=== PATIENT | female | born 1970 | race African-American/Black ===

== ENCOUNTER 2016-08-05 18:15 | Inpatient (IN) | payer OTHER ==
[2016-08-05 18:32] VITALS: BMI 21.1
--- NOTE | 2016-08-05 18:56 | HP ---
COWS - Scale Resting Pulse: 1= [place] 81-100 Sweatin= Chills/Flushing Restless Observation: 3= Extraneous Movement Pupil Size: 0= Normal to Room Light Bone or Joint Aches: 2= Severe Diffuse Aches Runny Nose/ Eye Tearin= Runny Nose/Eyes GI Upset > 30mins: 1= Stomach Cramp Tremor Observation: 2= Slight Tremor Visible Yawning Observation: 0= None Anxiety or Irritability: 2=Irritable/Anxious Goose Flesh Skin: 0=Smooth Skin COWS Score: 14 CIWA Score - CIWA Score Nausea/Vomitin-Mild Nausea/No Vomiting Muscle Tremors: 4-Moderate,w/Arms Extend Anxiety: 4-Mod. Anxious/Guarded Agitation: 4-Moderately Restless Paroxysmal Sweats: 1-Minimal Palms Moist Orientation: 0-Oriented Tacttile Disturbances: 0-None Auditory Disturbances: 0-None Visual Disturbances: 0-None Headache: 0-None Present CIWA-Ar Total Score: 14 Admission ROS S - HPI Chief Complaint: WITHDRAWAL SX Allergies/Adverse Reactions: Allergies Allergy/AdvReac Type Severity Reaction Status Date / Time No Known Allergies Allergy Verified 08/05/16 18:41 History of Present Illness: 45 YEARS OLD FEMALE WITH LONG HISTORY OF ALCOHOL OPIUM NICOTINE DEPENDENCE HAS POSITIVE PPD AND NASAL CONGESTION BIPOLAR II IS ADMITTED TO DETOX Exam Limitations: No Limitations - Ebola screening Have you traveled outside of the country in the last 21 days: No Have you had contact with anyone from an Ebola affected area: No Have you been sick,other than usual withdrawal symptoms: No Do you have a fever: No - Review of Systems Constitutional: Chills, Loss of Appetite, Changes in sleep, Unintentional Wgt. Loss, Unexplained wgt Loss EENT: reports: No Symptoms Reported Respiratory: reports: No Symptoms reported Cardiac: reports: No Symptoms Reported GI: reports: Nausea, Poor Appetite, Poor Fluid Intake, Indigestion, Abdominal cramping : reports: No Symptoms Reported Musculoskeletal: reports: Back Pain, Joint Pain, Muscle Pain, Neck Pain Integumentary: reports: No Symptoms Reported Neuro: reports: Tremors Endocrine: reports: No Symptoms Reported Hematology: reports: No Symptoms Reported Psychiatric: reports: Judgement Intact, Orientated x3, other (BIPOLAR II) Other Systems: Reviewed and Negative Patient History - Patient Medical History Hx Anemia: Yes Hx Asthma: No Hx Chronic Obstructive Pulmonary Disease (COPD): No Hx Cancer: No Hx Cardiac Disorders: No Hx Congestive Heart Failure: No Hx Hypertension: No Hx Hypercholesterolemia: No Hx Pacemaker: No HX Cerebrovascular Accident: No Hx Seizures: No Hx Dementia: No Hx Diabetes: No Hx Gastrointestinal Disorders: Yes Hx Liver Disease: No Hx Genitourinary Disorders: No Hx Sexually Transmitted Disorders: No Hx Renal Disease (ESRD): No Hx Thyroid Disease: No Hx Human Immunodeficiency Virus (HIV): No Hx Hepatitis C: No Hx Depression: No Hx Suicide Attempt: Yes (20 YEARS AGO OVER DOSE) Hx Bipolar Disorder: Yes Hx Schizophrenia: No - Patient Surgical History Past Surgical History: Yes Hx Section: Yes (X 2002) Anesthesia Reaction: No - PPD History Previous Implant?: Yes Documented Results: Positive w/o proof Implanted On Prior [facility] Admission?: No PPD to be Administered?: No - Reproductive History Patient is a Female of Child Bearing Age (11 -55 yrs old): Yes Last Menstrual Period: 07/16/16 Patient : No - Smoking Cessation Smoking history: Current every day smoker Have you smoked in the past 12 months: Yes Aproximately how many cigarettes per day: 10 Cigars Per Day: 0 Hx Chewing Tobacco Use: No Initiated information on smoking cessation: Yes 'Breaking Loose' booklet given: 08/05/16 - Substance & Tx. History Hx Alcohol Use: Yes Hx Substance Use: Yes Substance Use Type: Alcohol, Cocaine, Heroin Hx Substance Use Treatment: No - Substances Abused Alcohol Route: Oral Frequency: Daily Amount used: liquor- 1/2 gallon, beer- 4 six packs Age of first use: 9 Date of Last Use: 08/05/16 Heroin Route: Inhalation Frequency: Daily Amount used: 5 bags Age of first use: 40 Date of Last Use: 08/05/16 Cocaine Route: Smoking Frequency: Daily Amount used: 8 bags Age of first use: 18 Date of Last Use: 08/05/16 Family Disease History - Family Disease History Family Disease History: Diabetes: Father, Sister, Heart Disease: Mother ( ) Admission Physical Exam BHS - Vital Signs Vital Signs: Vital Signs - 24 hr 08/05/16 18:26 Temperature 98.6 F Pulse Rate 81 Respiratory 14 Rate Blood Pressure 102/65 - Physical General Appearance: Yes: Appropriately Dressed, Mild Distress, Thin, Tremorous, Irritable, Sweating, Anxious HEENTM: Yes: Hearing grossly Normal, Normal ENT Inspection, Normocephalic, Normal Voice Respiratory: Yes: Chest Non-Tender, Lungs Clear, Normal Breath Sounds, No Respiratory Distress, No Accessory Muscle Use Neck: Yes: Supple, Trachea in good position Breast: Yes: Breasts Symetrical Cardiology: Yes: Regular Rhythm, Regular Rate, S1, S2 Abdominal: Yes: Non Tender, Soft, Decreased BS (IRON PILL + COLACE) Genitourinary: Yes: Within Normal Limits Back: Yes: Normal Inspection Musculoskeletal: Yes: full range of Motion, Gait Steady, Back pain, Muscle Pain Extremities: Yes: Normal Inspection, Normal Range of Motion, Non-Tender, Tremors Neurological: Yes: Alert, Motor Strength 5/5, Normal Response, Depressed Affect Integumentary: Yes: Warm Lymphatic: Yes: Within Normal Limits - Diagnostic (1) Alcohol dependence with uncomplicated withdrawal Current Visit: Yes Status: Acute (2) Opioid dependence with withdrawal Current Visit: Yes Status: Acute (3) Cocaine dependence, uncomplicated Current Visit: Yes Status: Chronic (4) Positive PPD, treated Current Visit: Yes Status: Resolved (5) Nasal congestion Current Visit: Yes Status: Chronic (6) GERD (gastroesophageal reflux disease) Current Visit: Yes Status: Chronic Qualifiers: Esophagitis presence: without esophagitis Qualified Code(s): K21.9 - Gastro-esophageal reflux disease without esophagitis (7) Nicotine dependence Current Visit: Yes Status: Acute Qualifiers: Nicotine product type: cigarettes Substance use status: in withdrawal Qualified Code(s): F17.213 - Nicotine dependence, cigarettes, with withdrawal (8) Weight loss Current Visit: Yes Status: Acute (9) Bipolar II disorder Current Visit: Yes Status: Suspected Cleared for Admission [facility] - Detox or Rehab [facility] Level of Care: Medically Managed Detox Regimen/Protocol: Methadone/Librium [facility] Breath Alcohol Content Breath Alcohol Content: 0 Urine Pregancy Test - Result Urine Test Results: Negative- NO Line Present Urine Drug Screen - Results Drug Screen Negative: No Urine Drug Screen Results: QUE-Cocaine, OPI-Opiates
[2016-08-05] MEDS ORDERED: guaiFENesin/D-METHORPHAN HB 10 ML UNIT-DOSE CUPS PO PRN (18:58)
[2016-08-05] MEDS ORDERED: MAG HYDROX/AL HYDROX/SIMETH 30 ML UNIT-DOSE CUP PO PRN (18:58)
[2016-08-05] MEDS ORDERED: MENTHOL/PHENOL 1 EACH UD MM PRN (18:58)
[2016-08-05] MEDS ORDERED: diphenhydrAMINE HCL 50 MG CAPSULE PO PRN (18:58)
[2016-08-05] MEDS ORDERED: chlordiazePOXIDE HCL 25 MG CAPSULE PO PRN (18:58)
[2016-08-05] MEDS ORDERED: MAGNESIUM HYDROX 2400MG/30ML ORAL SUSPENSION 30 ML CUP PO PRN (18:58)
[2016-08-05] MEDS ORDERED: LOPERAMIDE HCL 2 MG CAPSULE PO PRN (18:58)
[2016-08-05] MEDS ORDERED: MAGNESIUM CITRATE 300 ML BOTTLE PO PRN (18:58)
[2016-08-05] MEDS ORDERED: METHADONE HCL 10 MG TABLET (FOR DETOX USE ONLY) PO ONE ×2 (18:58→23:00)
[2016-08-05] MEDS: NICOTINE 14 MG/24 HOURS TOPICAL PATCH TD SCH (21:02)
[2016-08-05] MEDS: chlordiazePOXIDE HCL 25 MG CAPSULE PO SCH (23:33)
[2016-08-05] MEDS: RANITIDINE HCL 150 MG TABLET (FP) PO SCH (23:34)
[2016-08-05] MEDS: THIAMINE HCL 100 MG TABLET (FP) PO SCH (23:34)
[2016-08-06] MEDS: chlordiazePOXIDE HCL 25 MG CAPSULE PO SCH ×4 (06:05→22:17)
[2016-08-06 07:53] LABS: URINE APPEARANCE TURBID; URINE BILIRUBIN NEGATIVE (NEGATIVE); URINE BLOOD NEGATIVE (NEGATIVE); URINE COLOR AMBER; URINE GLUCOSE (UA) NEGATIVE (NEGATIVE); URINE KETONE NEGATIVE (NEGATIVE); URINE LEUK ESTERASE NEGATIVE (NEGATIVE); URINE NITRITE NEGATIVE (NEGATIVE); URINE PROTEIN NEGATIVE (NEGATIVE); URINE UROBILINOGEN NEGATIVE E.U./dl (0.2-1.0)
--- NOTE | 2016-08-06 09:24 | PN ---
[facility] CIWA - CIWA Score Nausea/Vomitin Muscle Tremors: 3 Anxiety: 3 Agitation: 2 Paroxysmal Sweats: 1-Minimal Palms Moist Orientation: 0-Oriented Tacttile Disturbances: 1-Very Mild Itch/Numbness Auditory Disturbances: 1-Very Mild Visual Disturbances: 1-Very Mild Sensitivity Headache: 2-Mild CIWA-Ar Total Score: 17 BHS COWS - Scale Resting Pulse: 0= [place] 80 or Below Sweatin= Chills/Flushing Restless Observation: 3= Extraneous Movement Pupil Size: 1= Pupils >than Normal Bone or Joint Aches: 2= Severe Diffuse Aches Runny Nose/ Eye Tearin= Runny Nose/Eyes GI Upset > 30mins: 2= Nausea/Diarrhea Tremor Observation of Outstretched Hands: 2= Slight Tremor Visible Yawning Observation: 1= 1-2x During Session Anxiety or Irritability: 2=Irritable/Anxious Goose Flesh Skin: 0=Smooth Skin COWS Score: 16 S Progress Note (SOAP) Subjective: ALERT,IRRITABLE,ANXIOUS,INTERRUPTED SLEEP,PAIN IN THE BODY AND BACK,TREMOR Objective: 08/06/16 09:22 Vital Signs Temperature 96.9 F L 08/06/16 06:06 Pulse Rate 72 08/06/16 06:06 Respiratory Rate 16 08/06/16 06:06 Blood Pressure 96/64 08/06/16 06:06 O2 Sat by Pulse Oximetry (%) EKG NSR,NORMAL ECG Laboratory Last Values Urine Color Naye 08/05/16 20:30 Urine Appearance Turbid 08/05/16 20:30 Urine pH 5.0 (5.0-8.0) 08/05/16 20:30 Urine Protein Negative (NEGATIVE) 08/05/16 20:30 Urine Glucose (UA) Negative (NEGATIVE) 08/05/16 20:30 Urine Ketones Negative (NEGATIVE) 08/05/16 20:30 Urine Blood Negative (NEGATIVE) 08/05/16 20:30 Urine Nitrite Negative (NEGATIVE) 08/05/16 20:30 Urine Bilirubin Negative (NEGATIVE) 08/05/16 20:30 Urine Urobilinogen Negative E.U./dl (0.2-1.0) 08/05/16 20:30 Ur Leukocyte Esterase Negative (NEGATIVE) 08/05/16 20:30 LABS PENDING Assessment: 08/06/16 09:23 WITHDRAWAL SYMPTOM Plan: CONTINUE DETOX
[2016-08-06 09:50] LABS: MCH 25.7 pg (25.7-33.7); MCHC 32.2 g/dl (32.0-36.0); MEAN CELL VOLUME 79.9 fl (80-96); MEAN PLT VOLUME 9.8 fl (7.5-11.1); PLATELET COUNT 160 K/MM3 (134-434); RDW 17.1 % (11.6-15.6); WHITE BLOOD COUNT 5.6 K/mm3 (4.0-10.0)
[2016-08-06] MEDS ORDERED: METHADONE HCL 10 MG TABLET (FOR DETOX USE ONLY) PO SCH (10:00)
[2016-08-06 10:18] LABS: ALBUMIN 2.9 g/dl (3.4-5.0); ANION GAP 10 (8-16); CALCIUM 8.5 mg/dL (8.5-10.1); CO2 25 mmol/L (21-32); GLUCOSE,RANDOM 88 mg/dL (74-106)
[2016-08-06 10:21] LABS: ALK PHOS 55 U/L (45-117); BILIRUBIN,TOTAL 0.5 mg/dL (0.2-1.0); CREATININE 0.8 mg/dL (0.55-1.02); SGOT/AST 26 U/L (15-37); SGPT/ALT 40 U/L (12-78); TOT PROT 5.8 g/dl (6.4-8.2)
[2016-08-06] MEDS: PRENATAL VITAMINS W/ FOLIC ACID TABLET (FP) PO SCH (10:40)
[2016-08-06] MEDS: busPIRone HCL 10 MG TABLET (FP) PO SCH ×2 (10:41→22:15)
[2016-08-06] MEDS: RANITIDINE HCL 150 MG TABLET (FP) PO SCH ×2 (10:41→22:15)
[2016-08-06] MEDS: QUEtiapine FUMARATE 100 MG TABLET (FP) PO SCH (10:41)
[2016-08-06] MEDS: P-EPHED 60MG/TRIPROLIDI 2.5MG TABLET PO PRN (10:42)
[2016-08-06] MEDS: NICOTINE 14 MG/24 HOURS TOPICAL PATCH TD SCH (10:42)
--- NOTE | 2016-08-06 11:02 | CONSULT ---
[facility] Psychiatric Consult - Data Date of interview: 08/06/16 Admission source: [facility] Identifying data: This is 45 years old female with history of Bipolar disorder, psychiatric hospitalizatiojn history intoxicated with: [id number], Opiuoids, Cocaine and Nicotine Substance Abuse History: - Smoking Cessation. Smoking history: Current every day smoker. Have you smoked in the past 12 months: Yes. Aproximately how many cigarettes per day: 10. Cigars Per Day: 0. Hx Chewing Tobacco Use: No. Initiated information on smoking cessation: Yes. 'Breaking Loose' booklet given : 08/05/16. - Substance & Tx. History. Hx Alcohol Use: Yes. Hx Substance Use : Yes. Substance Use Type: Alcohol, Cocaine, Heroin. Hx Substance Use Treatment: No. - Substances Abused. Alcohol. Route: Oral. Frequency: Daily. Amount used: liquor- 1/2 gallon, beer- 4 six packs. Age of first use: 9. Date of Last Use: 08/05/16. Heroin. Route: Inhalation. Frequency: Daily. Amount used: 5 bags. Age of first use: 40. Date of Last Use: . Cocaine. Route: Smoking. Frequency: Daily. Amount used: 8 bags. Age of first use: 18. Date of Last Use: 08/05/16 Medical History: Weight loss history, GERD, PPD+ history Psychiatric History: Patient reprots history of Bipolar Disorder with most recent psychiatric admsision on 2016 at [facility], reports takijng prior to admission: Buspar 10mg po bid. Seroquel 100mg poqd, 200mg po qhs Physical/Sexual Abuse/Trauma History: Denies Additional Comment: Buspar 10mg po bid. Seroquel 100mg poqd, 200mg po qhs Mental Status Exam - Mental Status Exam Cognitive Function: Fair Patient Appearance: Unkempt Mood: Sad Affect: Flat Patient Behavior: Sedated Speech Pattern: Delayed Voice Loudness: Mildly Soft/Quiet Thought Process: Circumstantial, Goal Oriented Thought Disorder: Being Controlled Hallucinations: Denies Suicidal Ideation: Denies Homicidal Ideation: Denies Insight/Judgement: Fair Sleep: Difficulty falling asleep Appetite: Weight loss Muscle strength/Tone: Normal Gait/Station: Normal Additional Comments: Buspar 10mg po bid. Seroquel 100mg poqd, 200mg po qhs Psychiatric Findings - Problem List ([place] 1, 2,3) (1) Alcohol dependence with uncomplicated withdrawal Current Visit: Yes Status: Acute (2) Nicotine dependence Current Visit: Yes Status: Acute Qualifiers: Nicotine product type: cigarettes Substance use status: in withdrawal Qualified Code(s): F17.213 - Nicotine dependence, cigarettes, with withdrawal (3) Opioid dependence with withdrawal Current Visit: Yes Status: Acute (4) Cocaine dependence, uncomplicated Current Visit: Yes Status: Chronic (5) Bipolar II disorder Current Visit: Yes Status: Suspected - Initial Treatment Plan Initial Treatment Plan: Buspar 10mg po bid. Seroquel 100mg poqd, 200mg po qhs
[2016-08-06] MEDS: FLUTICASONE PROP 0.05% 16 GM NASAL SPRAY NS SCH (11:26)
[2016-08-06] MEDS: QUEtiapine FUMARATE 200 MG TABLET PO SCH (22:15)
[2016-08-06] MEDS: THIAMINE HCL 100 MG TABLET (FP) PO SCH (22:15)
[2016-08-07] MEDS: chlordiazePOXIDE HCL 25 MG CAPSULE PO SCH ×3 (06:19→17:55)
--- NOTE | 2016-08-07 09:51 | PN ---
[facility] CIWA - CIWA Score Nausea/Vomitin Muscle Tremors: 3 Anxiety: 3 Agitation: 2 Paroxysmal Sweats: 1-Minimal Palms Moist Orientation: 0-Oriented Tacttile Disturbances: 1-Very Mild Itch/Numbness Auditory Disturbances: 1-Very Mild Visual Disturbances: 1-Very Mild Sensitivity Headache: 2-Mild CIWA-Ar Total Score: 17 BHS COWS - Scale Resting Pulse: 1= [place] 81-100 Sweatin= Chills/Flushing Restless Observation: 3= Extraneous Movement Pupil Size: 1= Pupils >than Normal Bone or Joint Aches: 2= Severe Diffuse Aches Runny Nose/ Eye Tearin= Runny Nose/Eyes GI Upset > 30mins: 2= Nausea/Diarrhea Tremor Observation of Outstretched Hands: 2= Slight Tremor Visible Yawning Observation: 1= 1-2x During Session Anxiety or Irritability: 2=Irritable/Anxious Goose Flesh Skin: 0=Smooth Skin COWS Score: 17 [facility] Progress Note (SOAP) Subjective: ALERT,IRRITABLE,ANXIOUS,INTERRUPTED SLEEP,TREMOR,PAIN IN THE BODY AND BACK Objective: 08/07/16 09:50 Vital Signs Temperature 98.6 F 08/07/16 09:28 Pulse Rate 83 08/07/16 09:28 Respiratory Rate 16 08/07/16 09:28 Blood Pressure 114/70 08/07/16 09:28 O2 Sat by Pulse Oximetry (%) Laboratory Last Values WBC 5.6 K/mm3 (4.0-10.0) 08/06/16 07:00 RBC 3.61 M/mm3 (3.60-5.2) 08/06/16 07:00 Hgb 9.3 GM/dL (10.7-15.3) L 08/06/16 07:00 Hct 28.9 % (32.4-45.2) L 08/06/16 07:00 MCV 79.9 fl (80-96) L 08/06/16 07:00 MCHC 32.2 g/dl (32.0-36.0) 08/06/16 07:00 RDW 17.1 % (11.6-15.6) H 08/06/16 07:00 Plt Count 160 K/MM3 (134-434) 08/06/16 07:00 MPV 9.8 fl (7.5-11.1) 08/06/16 07:00 Sodium 146 mmol/L (136-145) H 08/06/16 07:00 Potassium 3.7 mmol/L (3.5-5.1) 08/06/16 07:00 Chloride 111 mmol/L (98-107) H 08/06/16 07:00 Carbon Dioxide 25 mmol/L (21-32) 08/06/16 07:00 Anion Gap 10 (8-16) 08/06/16 07:00 BUN 19 mg/dL (7-18) H 08/06/16 07:00 Creatinine 0.8 mg/dL (0.55-1.02) 08/06/16 07:00 Creat Clearance w eGFR > 60 (>60) 08/06/16 07:00 Random Glucose 88 mg/dL (74-106) 08/06/16 07:00 Calcium 8.5 mg/dL (8.5-10.1) 08/06/16 07:00 Total Bilirubin 0.5 mg/dL (0.2-1.0) 08/06/16 07:00 AST 26 U/L (15-37) 08/06/16 07:00 ALT 40 U/L (12-78) 08/06/16 07:00 Alkaline Phosphatase 55 U/L (45-117) 08/06/16 07:00 Total Protein 5.8 g/dl (6.4-8.2) L 08/06/16 07:00 Albumin 2.9 g/dl (3.4-5.0) L 08/06/16 07:00 Urine Color Naye 08/05/16 20:30 Urine Appearance Turbid 08/05/16 20:30 Urine pH 5.0 (5.0-8.0) 08/05/16 20:30 Ur Specific [place] 1.025 (1.005-1.025) 08/05/16 20:30 Urine Protein Negative (NEGATIVE) 08/05/16 20:30 Urine Glucose (UA) Negative (NEGATIVE) 08/05/16 20:30 Urine Ketones Negative (NEGATIVE) 08/05/16 20:30 Urine Blood Negative (NEGATIVE) 08/05/16 20:30 Urine Nitrite Negative (NEGATIVE) 08/05/16 20:30 Urine Bilirubin Negative (NEGATIVE) 08/05/16 20:30 Urine Urobilinogen Negative E.U./dl (0.2-1.0) 08/05/16 20:30 Ur Leukocyte Esterase Negative (NEGATIVE) 08/05/16 20:30 RPR Titer Nonreactive (NONREACTIVE) 08/06/16 07:00 Assessment: 08/07/16 09:50 WITHDRAWAL SYMPTOM Plan: CONTIUNE DETOX,HISTORY OF ANEMIA,FERROUS SULFATE 325 MGS PO BID
[2016-08-07] MEDS: METHADONE HCL 5 MG TABLET (FOR DETOX USE ONLY) PO SCH (10:42)
[2016-08-07] MEDS: FLUTICASONE PROP 0.05% 16 GM NASAL SPRAY NS SCH (10:42)
[2016-08-07] MEDS: PRENATAL VITAMINS W/ FOLIC ACID TABLET (FP) PO SCH (10:42)
[2016-08-07] MEDS: QUEtiapine FUMARATE 100 MG TABLET (FP) PO SCH (10:42)
[2016-08-07] MEDS: busPIRone HCL 10 MG TABLET (FP) PO SCH ×2 (10:42→22:12)
[2016-08-07] MEDS: RANITIDINE HCL 150 MG TABLET (FP) PO SCH ×2 (10:42→22:12)
[2016-08-07] MEDS: NICOTINE 14 MG/24 HOURS TOPICAL PATCH TD SCH (10:43)
[2016-08-07] MEDS: FERROUS SO4 325 MG TABLET (FP) PO SCH ×2 (10:43→22:11)
[2016-08-07] MEDS: NICOTINE POLACRILEX 2 MG GUM BC PRN (10:45)
--- NOTE | 2016-08-07 15:53 | EKG ---
Test Reason : Blood Pressure : / mmHG Vent. Rate : 061 BPM Atrial Rate : 061 BPM P-R Int : 148 ms QRS Dur : 070 ms QT Int : 412 ms P-R-T Axes : 066 071 057 degrees QTc Int : 414 ms NORMAL SINUS RHYTHM NORMAL ECG NO PREVIOUS ECGS AVAILABLE Confirmed by YANDY CONTRERAS MD ([id number]) on 08/07/2016 3:52:41 PM Referred By: Confirmed By:YANDY CONTRERAS MD
[2016-08-07] MEDS: QUEtiapine FUMARATE 200 MG TABLET PO SCH (22:11)
[2016-08-07] MEDS: THIAMINE HCL 100 MG TABLET (FP) PO SCH (22:12)
[2016-08-07] MEDS: chlordiazePOXIDE 5 MG CAPSULE PO SCH (22:13)
[2016-08-08] MEDS: chlordiazePOXIDE 5 MG CAPSULE PO SCH ×3 (05:59→17:21)
--- NOTE | 2016-08-08 09:43 | PN ---
S Progress Note (SOAP) Subjective: ALERT,IRRITABLE,ANXIOUS,INTERRUPTED SLEEP, Objective: 08/08/16 09:41 Vital Signs Temperature 97.0 F L 08/08/16 06:00 Pulse Rate 85 08/08/16 06:00 Respiratory Rate 16 08/08/16 06:00 Blood Pressure 113/68 08/08/16 06:00 O2 Sat by Pulse Oximetry (%) Assessment: 08/08/16 09:42 WITHDRAWAL SYMPTOM Plan: CONTINUE DETOX,HISTORY OF ANEMIA,STATED TAKING IRON PILL THREE TIMES A DAY
[2016-08-08] MEDS: RANITIDINE HCL 150 MG TABLET (FP) PO SCH ×2 (10:23→22:08)
[2016-08-08] MEDS: busPIRone HCL 10 MG TABLET (FP) PO SCH ×2 (10:23→22:08)
[2016-08-08] MEDS: METHADONE HCL 5 MG TABLET (FOR DETOX USE ONLY) PO SCH (10:23)
[2016-08-08] MEDS: FLUTICASONE PROP 0.05% 16 GM NASAL SPRAY NS SCH (10:23)
[2016-08-08] MEDS: QUEtiapine FUMARATE 100 MG TABLET (FP) PO SCH (10:23)
[2016-08-08] MEDS: PRENATAL VITAMINS W/ FOLIC ACID TABLET (FP) PO SCH (10:23)
[2016-08-08] MEDS: NICOTINE 14 MG/24 HOURS TOPICAL PATCH TD SCH (10:24)
[2016-08-08] MEDS: FERROUS SO4 325 MG TABLET (FP) PO SCH ×2 (12:00→17:21)
[2016-08-08] MEDS: chlordiazePOXIDE HCL 10 MG CAPSULE PO SCH (22:07)
[2016-08-08] MEDS: THIAMINE HCL 100 MG TABLET (FP) PO SCH (22:08)
[2016-08-08] MEDS: QUEtiapine FUMARATE 200 MG TABLET PO SCH (22:08)
[2016-08-09] MEDS: chlordiazePOXIDE HCL 10 MG CAPSULE PO SCH ×3 (05:36→18:05)
[2016-08-09] MEDS: ACETAMINOPHEN 325 MG TABLET (FP) PO PRN (05:40)
[2016-08-09] MEDS: FERROUS SO4 325 MG TABLET (FP) PO SCH ×3 (07:29→18:05)
[2016-08-09] MEDS ORDERED: METHADONE HCL 10 MG TABLET (FOR DETOX USE ONLY) PO SCH (10:00)
--- NOTE | 2016-08-09 10:10 | PN ---
S Progress Note (SOAP) Subjective: ALERT,IRRITABLE,ANXIOUS,SORE THROAT ,INTERRUPTED SLEEP, Objective: 08/09/16 10:08 Vital Signs Temperature 100.9 F H 08/09/16 06:01 Pulse Rate 101 H 08/09/16 06:01 Respiratory Rate 20 08/09/16 06:01 Blood Pressure 118/61 08/09/16 06:01 O2 Sat by Pulse Oximetry (%) Assessment: 08/09/16 10:08 URI WITH CERVICAL LYMPH ADENITIS 08/09/16 10:09 WITHDRAWAL SYMPTOM Plan: CONTINUE DETOX,AMOXICILLIN 500 MGS PO TID
[2016-08-09] MEDS: PRENATAL VITAMINS W/ FOLIC ACID TABLET (FP) PO SCH (10:25)
[2016-08-09] MEDS: busPIRone HCL 10 MG TABLET (FP) PO SCH ×2 (10:25→21:53)
[2016-08-09] MEDS: RANITIDINE HCL 150 MG TABLET (FP) PO SCH ×2 (10:25→21:53)
[2016-08-09] MEDS: NICOTINE 14 MG/24 HOURS TOPICAL PATCH TD SCH (10:26)
[2016-08-09] MEDS: QUEtiapine FUMARATE 100 MG TABLET (FP) PO SCH (10:26)
[2016-08-09] MEDS: FLUTICASONE PROP 0.05% 16 GM NASAL SPRAY NS SCH (10:26)
[2016-08-09] MEDS: NICOTINE POLACRILEX 2 MG GUM BC PRN (10:27)
[2016-08-09] MEDS: AMOXICILLIN 500 MG CAPSULE (FP) PO SCH ×2 (15:16→21:53)
[2016-08-09] MEDS: P-EPHED 60MG/TRIPROLIDI 2.5MG TABLET PO PRN (19:33)
[2016-08-09] MEDS: THIAMINE HCL 100 MG TABLET (FP) PO SCH (21:53)
[2016-08-09] MEDS: QUEtiapine FUMARATE 200 MG TABLET PO SCH (21:53)
[2016-08-10] MEDS ORDERED: METHADONE HCL 5 MG TABLET (FOR DETOX USE ONLY) PO SCH (06:00)
[2016-08-10] MEDS: FERROUS SO4 325 MG TABLET (FP) PO SCH ×3 (07:49→17:12)
[2016-08-10] MEDS: AMOXICILLIN 500 MG CAPSULE (FP) PO SCH ×3 (07:49→22:49)
--- NOTE | 2016-08-10 09:11 | PN ---
S Progress Note (SOAP) Subjective: ALERT,INTERRUPTED SLEEP Objective: 08/10/16 09:10 Vital Signs Temperature 97.9 F 08/10/16 05:53 Pulse Rate 84 08/10/16 05:53 Respiratory Rate 18 08/10/16 05:53 Blood Pressure 100/57 08/10/16 05:53 O2 Sat by Pulse Oximetry (%) Assessment: 08/10/16 09:11 WITHDRAWAL SYMPTOM Plan: CONTINUE DETOX,DISCHARGE IN AM
[2016-08-10] MEDS: RANITIDINE HCL 150 MG TABLET (FP) PO SCH ×2 (10:20→22:20)
[2016-08-10] MEDS: busPIRone HCL 10 MG TABLET (FP) PO SCH ×2 (10:20→22:20)
[2016-08-10] MEDS: PRENATAL VITAMINS W/ FOLIC ACID TABLET (FP) PO SCH (10:20)
[2016-08-10] MEDS: QUEtiapine FUMARATE 100 MG TABLET (FP) PO SCH (10:20)
[2016-08-10] MEDS: NICOTINE 14 MG/24 HOURS TOPICAL PATCH TD SCH (10:21)
[2016-08-10] MEDS: NICOTINE POLACRILEX 2 MG GUM BC PRN ×3 (10:21→22:22)
[2016-08-10] MEDS: FLUTICASONE PROP 0.05% 16 GM NASAL SPRAY NS SCH (10:21)
[2016-08-10] MEDS: ACETAMINOPHEN 325 MG TABLET (FP) PO PRN (20:44)
[2016-08-10] MEDS: THIAMINE HCL 100 MG TABLET (FP) PO SCH (22:20)
[2016-08-10] MEDS: QUEtiapine FUMARATE 200 MG TABLET PO SCH (22:20)
[2016-08-11] MEDS: AMOXICILLIN 500 MG CAPSULE (FP) PO SCH (06:42)
[2016-08-11] MEDS: FERROUS SO4 325 MG TABLET (FP) PO SCH (07:24)
--- NOTE | 2016-08-11 09:01 | DS ---
[facility] Detox Discharge Summary Admission Date: 08/05/16 Discharge Date: 08/11/16 - History Present History: Alcohol Dependence, Cocaine Dependence, Opioid Dependence Additional Comments: follow up with after care program as arrangement [facility] Pertinent Past History: gerd nicotine dependence seight loss anemia uri - Physical Exam Results Vital Signs: Vital Signs Temperature 98.1 F 08/11/16 05:00 Pulse Rate 95 H 08/11/16 05:00 Respiratory Rate 18 08/11/16 05:00 Blood Pressure 100/50 08/11/16 05:00 O2 Sat by Pulse Oximetry (%) Pertinent Admission Physical Exam Findings: withdrawal symptom - Treatment Hospital Course: Detox Protocol Followed, Detoxed Safely, Responded well, Discharged Condition Good, Rehab Referral Accepted Patient has Accepted a Rehab Referral to: [facility] - Medication Discharge Medications: Ambulatory Orders Buspirone HCl [Buspar -] 10 mg PO DAILY 08/05/16 Quetiapine Fumarate [Seroquel -] 100 mg PO DAILY 08/05/16 Quetiapine Fumarate [Seroquel -] 200 mg PO HS 08/05/16 Buspirone HCl [Buspar -] 10 mg PO BID #60 tablet 08/06/16 Quetiapine Fumarate [Seroquel -] 200 mg PO HS #30 tab 08/06/16 Quetiapine Fumarate [Seroquel] 100 tab PO DAILY #30 tablet 08/06/16 - Diagnosis (1) Opioid dependence with withdrawal Current Visit: Yes Status: Acute (2) Weight loss Current Visit: Yes Status: Acute (3) Cocaine dependence, uncomplicated Current Visit: Yes Status: Chronic (4) URI (upper respiratory infection) Current Visit: Yes Status: Acute (5) Anemia Current Visit: Yes Status: Acute (6) Alcohol dependence with uncomplicated withdrawal Current Visit: Yes Status: Acute (7) Bipolar II disorder Current Visit: Yes Status: Suspected - AMA Did Patient Leave Against Medical Advice: No
[2016-08-11] MEDS: QUEtiapine FUMARATE 100 MG TABLET (FP) PO SCH (10:44)
[2016-08-11] MEDS: busPIRone HCL 10 MG TABLET (FP) PO SCH (10:45)
[2016-08-11] MEDS: NICOTINE 14 MG/24 HOURS TOPICAL PATCH TD SCH (10:45)
[2016-08-11] MEDS: PRENATAL VITAMINS W/ FOLIC ACID TABLET (FP) PO SCH (10:45)
[2016-08-11] MEDS: FLUTICASONE PROP 0.05% 16 GM NASAL SPRAY NS SCH (10:45)
[2016-08-11] MEDS: RANITIDINE HCL 150 MG TABLET (FP) PO SCH (10:45)
[2016-08-11] MEDS: NICOTINE POLACRILEX 2 MG GUM BC PRN (10:46)
[2016-08-11 10:53] VITALS: BP 128/76; PULSE 99; TEMP 98.4
--- NOTE | 2016-08-11 12:03 | PN ---
Psychiatric Progress Note Vital Signs: Vital Signs Period Temp Pulse Resp BP Sys/Combs Pulse Ox Last 24 Hr 97.9 F-98.4 F 69-99 16-20 100-128/50-77 Date of Session: 08/11/16 Chief Complaint:: My medications HPI: Patient approached MD in a lobby asking to sent her medications up[on dischege to different pharmacy. Current medications are: Buspar 10mg po bid. Seroquel 100mg poqd. 200mg po qhs Current Medications: Active Medications Generic Name Dose Route Start Last Admin Trade Name Freq PRN Reason Stop Dose Admin Acetaminophen 650 mg 08/05/16 18:58 08/10/16 20:44 Tylenol - PO 650 mg Q4H PRN Administration FEVER OR PAIN Al Hydroxide/Mg Hydroxide 30 ml 08/05/16 18:58 08/10/16 17:13 Mylanta Oral Suspension - PO 30 ml Q6H PRN Administration DYSPEPSIA Amoxicillin 500 mg 08/09/16 14:00 08/11/16 06:42 Amoxicillin - PO 500 mg TID RAND Administration Buspirone HCl 10 mg 08/06/16 10:00 08/11/16 10:45 Buspar - PO 10 mg BID RAND Administration Diphenhydramine HCl 50 mg 08/05/16 18:58 Benadryl - PO HSMR1 PRN INSOMNIA Eucalyptus/Menthol/Phenol/Sorbitol 1 each 08/05/16 18:58 Cepastat Lozenge - MM Q4H PRN SORE THROAT Ferrous Sulfate 325 mg 08/08/16 12:00 08/11/16 07:24 Feosol - PO 325 mg TIDCM RAND Administration Fluticasone Propionate 2 spray 08/06/16 10:00 08/11/16 10:45 Flonase - NS 2 spray DAILY RAND Administration Guaifenesin 10 ml 08/05/16 18:58 Robitussin Dm - PO Q6H PRN COUGH Loperamide HCl 4 mg 08/05/16 18:58 Imodium - PO Q6H PRN DIARRHEA Magnesium Citrate 300 ml 08/05/16 18:58 Citroma - PO Q48H PRN CONSTIPATION Magnesium Hydroxide 30 ml 08/05/16 18:58 Milk Of Magnesia - PO DAILY PRN CONSTIPATION Nicotine 14 mg 08/05/16 18:58 08/11/16 10:45 Nicoderm Patch - TD Not Given DAILY RAND Nicotine Polacrilex 2 mg 08/05/16 18:58 08/11/16 10:46 Nicorette Gum - BC 2 mg Q2H PRN Administration NICOTINE REPLACEMENT RX Multivit/Folic Acid/Iron 1 tab 08/06/16 10:00 08/11/16 10:45 Vitamins ([facility]) - PO 1 tab DAILY RAND Administration Pseudoephedrine/Triprolidine 1 combo 08/05/16 18:58 08/09/16 19:33 Actifed - PO 1 combo TID PRN Administration NASAL CONGESTION Quetiapine Fumarate 200 mg 08/06/16 22:00 08/10/16 22:20 Seroquel - PO 200 mg HS RAND Administration Quetiapine Fumarate 100 mg 08/06/16 10:00 08/11/16 10:44 Seroquel - PO 100 mg DAILY RAND Administration Ranitidine HCl 150 mg 08/05/16 22:00 08/11/16 10:45 Zantac - PO 150 mg BID RAND Administration Thiamine HCl 100 mg 08/05/16 22:00 08/10/16 22:20 Vitamin B1 - PO 100 mg HS RAND Administration Medication(s) Change(s): Buspar 10mg po bid. Seroquel 100mg poqd. 200mg po qhs. sent to different pharmacy as patient requested Mental Status Exam - Mental Status Exam Alert and Oriented to: Person Cognitive Function: Fair Patient Appearance: Unkempt Mood: Sad Affect: Mood Congruent Patient Behavior: Cooperative Speech Pattern: Delayed Voice Loudness: Mildly Loud Thought Process: Goal Oriented Hallucinations: Denies Suicidal Ideation: Denies Homicidal Ideation: Denies Insight/Judgement: Fair Sleep: Difficulty falling asleep Appetite: Weight loss Muscle strength/Tone: Mild Hypotonicity Gait/Station: Normal Additional Comments: Buspar 10mg po bid. Seroquel 100mg poqd. 200mg po qhs. sent to different pharmacy as patient requested Psychiatric Treatment Plan - Problem List (1) Alcohol dependence with uncomplicated withdrawal Current Visit: Yes (2) Nicotine dependence Current Visit: Yes Qualifiers: Nicotine product type: cigarettes Substance use status: in withdrawal Qualified Code(s): F17.213 - Nicotine dependence, cigarettes, with withdrawal (3) Opioid dependence with withdrawal Current Visit: Yes (4) Cocaine dependence, uncomplicated Current Visit: Yes (5) Bipolar II disorder Current Visit: Yes Initial treatment plan: Buspar 10mg po bid. Seroquel 100mg poqd. 200mg po qhs. sent to different pharmacy as patient requested
== END 2016-08-11 11:55 | disposition other institution (70) | DRG 773 ==
LOC: YASAS 18:15 → Y6N 19:24
PROVIDERS: ADMIT Internal Medicine; ATTEND Internal Medicine
PROC: HZ2ZZZZ Detoxification Services for Substance Abuse Treatment (ICD-10-PCS; principal; 2016-08-05)
DX: F11.23 Opioid dependence with withdrawal (principal); F10.230 Alcohol dependence with withdrawal, uncomplicated; F14.20 Cocaine dependence, uncomplicated; F17.213 Nicotine dependence, cigarettes, with withdrawal; F31.81 Bipolar II disorder; K21.9 Gastro-esophageal reflux disease without esophagitis; I88.9 Nonspecific lymphadenitis, unspecified; D64.9 Anemia, unspecified; J06.9 Acute upper respiratory infection, unspecified; R76.11 Nonspecific reaction to tuberculin skin test without active tuberculosis; Z91.5 Personal history of self-harm; Z87.898 Personal history of other specified conditions
CPT/HCPCS: 36415; 71020-TC; 80053; 81003; 85027; 86593; 93005; 93010

== ENCOUNTER 2016-08-11 12:15 | Inpatient (IN) | payer OTHER ==
[2016-08-11] MEDS ORDERED: MAGNESIUM CITRATE 300 ML BOTTLE PO PRN (13:14)
[2016-08-11] MEDS ORDERED: IBUPROFEN 400 MG TABLET (FP) PO PRN (13:14)
[2016-08-11] MEDS ORDERED: MENTHOL/PHENOL 1 EACH UD MM PRN (13:14)
[2016-08-11] MEDS ORDERED: LOPERAMIDE HCL 2 MG CAPSULE PO PRN (13:14)
[2016-08-11] MEDS ORDERED: guaiFENesin/D-METHORPHAN HB 10 ML UNIT-DOSE CUPS PO PRN (13:14)
[2016-08-11] MEDS ORDERED: MAGNESIUM HYDROX 2400MG/30ML ORAL SUSPENSION 30 ML CUP PO PRN (13:14)
[2016-08-11] MEDS ORDERED: ACETAMINOPHEN 325 MG TABLET (FP) PO PRN (13:14)
[2016-08-11] MEDS ORDERED: MAG HYDROX/AL HYDROX/SIMETH 30 ML UNIT-DOSE CUP PO PRN (13:14)
--- NOTE | 2016-08-11 13:17 | HP ---
[facility] Re[facility] Assess/Revision - Admission History Admitted to Rehab from: [facility] [place] Date of Admission to Rehab: 08/11/16 - Vital signs Vital Signs: Vital Signs - 24 hr 08/11/16 08/12/16 08/12/16 13:39 00:30 03:30 Temperature 97.8 F Pulse Rate 92 H Respiratory 18 16 16 Rate Blood Pressure 113/74 08/12/16 07:08 Temperature 98.8 F Pulse Rate 84 Respiratory 16 Rate Blood Pressure 109/75 - Findings Detox History & Physical reviewed: Yes Concur with findings: Yes
[2016-08-11] MEDS: AMOXICILLIN 500 MG CAPSULE (FP) PO SCH ×2 (15:00→21:36)
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
[2016-08-11] MEDS: FERROUS SO4 325 MG TABLET (FP) PO SCH (17:46)
[2016-08-11] MEDS: THIAMINE HCL 100 MG TABLET (FP) PO SCH (21:36)
[2016-08-11] MEDS: QUEtiapine FUMARATE 200 MG TABLET PO SCH (21:36)
[2016-08-11] MEDS: RANITIDINE HCL 150 MG TABLET (FP) PO SCH (21:36)
[2016-08-11] MEDS: busPIRone HCL 10 MG TABLET (FP) PO SCH (21:36)
[2016-08-12] MEDS: AMOXICILLIN 500 MG CAPSULE (FP) PO SCH ×3 (06:14→21:25)
[2016-08-12] MEDS: NICOTINE POLACRILEX 2 MG GUM BUC PRN ×2 (06:15→17:44)
[2016-08-12] MEDS: FERROUS SO4 325 MG TABLET (FP) PO SCH ×3 (07:41→17:39)
[2016-08-12] MEDS: RANITIDINE HCL 150 MG TABLET (FP) PO SCH ×2 (09:03→21:26)
[2016-08-12] MEDS: QUEtiapine FUMARATE 100 MG TABLET (FP) PO SCH (09:03)
[2016-08-12] MEDS: busPIRone HCL 10 MG TABLET (FP) PO SCH ×2 (09:03→21:26)
[2016-08-12] MEDS: PRENATAL VITAMINS W/ FOLIC ACID TABLET (FP) PO SCH (09:03)
[2016-08-12] MEDS: FLUTICASONE PROP 0.05% 16 GM NASAL SPRAY NS SCH (09:04)
--- NOTE | 2016-08-12 09:59 | PN ---
BHS Progress Note Note: C/O withdrawal sx.,last day of methadone was yesterday. Vital Signs - 8 hr 08/12/16 08/12/16 03:30 07:08 Temperature 98.8 F Pulse Rate 84 Respiratory 16 16 Rate Blood Pressure 109/75 Increase motrin to 600mg Clonidine .1mg bid
[2016-08-12] MEDS: cloNIDine HCL 0.1 MG TABLET PO SCH ×2 (10:19→21:26)
[2016-08-12 14:43] LABS: HIV 1 & 2 AB NEGATIVE; HIV 1 AGp24 NEGATIVE
[2016-08-12] MEDS: QUEtiapine FUMARATE 200 MG TABLET PO SCH (21:26)
[2016-08-12] MEDS: THIAMINE HCL 100 MG TABLET (FP) PO SCH (21:26)
[2016-08-12] MEDS ORDERED: PT OWN MED DRAWER 7, Y5N ONE (22:36)
[2016-08-13] MEDS: AMOXICILLIN 500 MG CAPSULE (FP) PO SCH ×3 (06:25→21:34)
[2016-08-13] MEDS: FERROUS SO4 325 MG TABLET (FP) PO SCH ×3 (07:25→18:19)
[2016-08-13] MEDS: NICOTINE POLACRILEX 2 MG GUM BUC PRN (08:47)
[2016-08-13] MEDS: cloNIDine HCL 0.1 MG TABLET PO SCH ×2 (10:43→21:34)
[2016-08-13] MEDS: RANITIDINE HCL 150 MG TABLET (FP) PO SCH ×2 (10:43→21:34)
[2016-08-13] MEDS: PRENATAL VITAMINS W/ FOLIC ACID TABLET (FP) PO SCH (10:43)
[2016-08-13] MEDS: FLUTICASONE PROP 0.05% 16 GM NASAL SPRAY NS SCH (10:43)
[2016-08-13] MEDS: busPIRone HCL 10 MG TABLET (FP) PO SCH ×2 (10:43→21:34)
[2016-08-13] MEDS: QUEtiapine FUMARATE 100 MG TABLET (FP) PO SCH (10:43)
[2016-08-13] MEDS: IBUPROFEN 600 MG TABLET (FP) PO PRN (18:21)
[2016-08-13] MEDS: QUEtiapine FUMARATE 200 MG TABLET PO SCH (21:34)
[2016-08-13] MEDS: THIAMINE HCL 100 MG TABLET (FP) PO SCH (21:34)
[2016-08-14] MEDS: AMOXICILLIN 500 MG CAPSULE (FP) PO SCH ×3 (06:17→21:37)
[2016-08-14] MEDS: IBUPROFEN 600 MG TABLET (FP) PO PRN ×2 (06:50→21:39)
[2016-08-14] MEDS: FERROUS SO4 325 MG TABLET (FP) PO SCH ×3 (07:43→18:42)
[2016-08-14] MEDS: busPIRone HCL 10 MG TABLET (FP) PO SCH ×2 (10:15→21:37)
[2016-08-14] MEDS: FLUTICASONE PROP 0.05% 16 GM NASAL SPRAY NS SCH (10:16)
[2016-08-14] MEDS: cloNIDine HCL 0.1 MG TABLET PO SCH ×2 (10:16→21:37)
[2016-08-14] MEDS: QUEtiapine FUMARATE 100 MG TABLET (FP) PO SCH (10:16)
[2016-08-14] MEDS: PRENATAL VITAMINS W/ FOLIC ACID TABLET (FP) PO SCH (10:16)
[2016-08-14] MEDS: RANITIDINE HCL 150 MG TABLET (FP) PO SCH ×2 (10:16→21:37)
[2016-08-14] MEDS: NICOTINE POLACRILEX 2 MG GUM BUC PRN ×3 (10:17→18:43)
[2016-08-14] MEDS: QUEtiapine FUMARATE 200 MG TABLET PO SCH (21:37)
[2016-08-14] MEDS: THIAMINE HCL 100 MG TABLET (FP) PO SCH (21:37)
[2016-08-14] MEDS ORDERED: PT OWN MED DRAWER 7, Y5N ONE (21:47)
[2016-08-15] MEDS: NICOTINE POLACRILEX 2 MG GUM BUC PRN ×2 (06:17→08:29)
[2016-08-15] MEDS: AMOXICILLIN 500 MG CAPSULE (FP) PO SCH ×3 (06:17→21:35)
[2016-08-15] MEDS: FERROUS SO4 325 MG TABLET (FP) PO SCH ×3 (07:35→17:25)
[2016-08-15] MEDS ORDERED: PT OWN MED DRAWER 7, Y5N ONE ×2 (10:08→10:35)
[2016-08-15] MEDS: PRENATAL VITAMINS W/ FOLIC ACID TABLET (FP) PO SCH (10:26)
[2016-08-15] MEDS: QUEtiapine FUMARATE 100 MG TABLET (FP) PO SCH (10:26)
[2016-08-15] MEDS: cloNIDine HCL 0.1 MG TABLET PO SCH ×2 (10:26→21:35)
[2016-08-15] MEDS: RANITIDINE HCL 150 MG TABLET (FP) PO SCH ×2 (10:26→21:35)
[2016-08-15] MEDS: busPIRone HCL 10 MG TABLET (FP) PO SCH ×2 (10:26→21:35)
[2016-08-15] MEDS: FLUTICASONE PROP 0.05% 16 GM NASAL SPRAY NS SCH (10:27)
[2016-08-15] MEDS: QUEtiapine FUMARATE 200 MG TABLET PO SCH (21:35)
[2016-08-15] MEDS: THIAMINE HCL 100 MG TABLET (FP) PO SCH (21:35)
[2016-08-16] MEDS: AMOXICILLIN 500 MG CAPSULE (FP) PO SCH (06:29)
[2016-08-16] MEDS: NICOTINE POLACRILEX 2 MG GUM BUC PRN ×4 (06:30→17:38)
[2016-08-16] MEDS: FERROUS SO4 325 MG TABLET (FP) PO SCH ×3 (07:06→17:38)
[2016-08-16] MEDS: busPIRone HCL 10 MG TABLET (FP) PO SCH ×2 (09:00→21:23)
[2016-08-16] MEDS: QUEtiapine FUMARATE 100 MG TABLET (FP) PO SCH (09:00)
[2016-08-16] MEDS: cloNIDine HCL 0.1 MG TABLET PO SCH ×2 (09:00→21:23)
[2016-08-16] MEDS: RANITIDINE HCL 150 MG TABLET (FP) PO SCH ×2 (09:00→21:23)
[2016-08-16] MEDS: PRENATAL VITAMINS W/ FOLIC ACID TABLET (FP) PO SCH (09:00)
[2016-08-16] MEDS: FLUTICASONE PROP 0.05% 16 GM NASAL SPRAY NS SCH (09:00)
[2016-08-16] MEDS: IBUPROFEN 600 MG TABLET (FP) PO PRN ×2 (11:55→21:23)
[2016-08-16] MEDS ORDERED: PT OWN MED DRAWER 7, Y5N ONE (20:00)
[2016-08-16] MEDS: QUEtiapine FUMARATE 200 MG TABLET PO SCH (21:23)
[2016-08-16] MEDS: THIAMINE HCL 100 MG TABLET (FP) PO SCH (21:23)
[2016-08-17] MEDS: NICOTINE POLACRILEX 2 MG GUM BUC PRN ×4 (07:07→21:15)
[2016-08-17] MEDS: FERROUS SO4 325 MG TABLET (FP) PO SCH ×3 (07:07→17:32)
[2016-08-17] MEDS: RANITIDINE HCL 150 MG TABLET (FP) PO SCH ×2 (10:07→21:12)
[2016-08-17] MEDS: PRENATAL VITAMINS W/ FOLIC ACID TABLET (FP) PO SCH (10:07)
[2016-08-17] MEDS: busPIRone HCL 10 MG TABLET (FP) PO SCH ×2 (10:07→21:11)
[2016-08-17] MEDS: QUEtiapine FUMARATE 100 MG TABLET (FP) PO SCH (10:07)
[2016-08-17] MEDS: cloNIDine HCL 0.1 MG TABLET PO SCH ×2 (10:07→21:11)
[2016-08-17] MEDS ORDERED: PT OWN MED DRAWER 7, Y5N ONE (10:09)
[2016-08-17] MEDS: FLUTICASONE PROP 0.05% 16 GM NASAL SPRAY NS SCH (10:09)
[2016-08-17] MEDS: IBUPROFEN 600 MG TABLET (FP) PO PRN (17:32)
[2016-08-17] MEDS: QUEtiapine FUMARATE 200 MG TABLET PO SCH (21:11)
[2016-08-17] MEDS: THIAMINE HCL 100 MG TABLET (FP) PO SCH (21:12)
[2016-08-17] MEDS: diphenhydrAMINE HCL 50 MG CAPSULE PO PRN (21:12)
[2016-08-17] MEDS: P-EPHED 60MG/TRIPROLIDI 2.5MG TABLET PO PRN (21:15)
[2016-08-18] MEDS: NICOTINE POLACRILEX 2 MG GUM BUC PRN ×4 (06:15→16:20)
[2016-08-18] MEDS: FERROUS SO4 325 MG TABLET (FP) PO SCH ×3 (07:13→17:40)
[2016-08-18] MEDS: PRENATAL VITAMINS W/ FOLIC ACID TABLET (FP) PO SCH (10:19)
[2016-08-18] MEDS: RANITIDINE HCL 150 MG TABLET (FP) PO SCH ×2 (10:19→21:36)
[2016-08-18] MEDS: cloNIDine HCL 0.1 MG TABLET PO SCH ×2 (10:19→21:36)
[2016-08-18] MEDS: FLUTICASONE PROP 0.05% 16 GM NASAL SPRAY NS SCH (10:19)
[2016-08-18] MEDS: busPIRone HCL 10 MG TABLET (FP) PO SCH ×2 (10:19→21:36)
[2016-08-18] MEDS: QUEtiapine FUMARATE 100 MG TABLET (FP) PO SCH (10:19)
[2016-08-18] MEDS: QUEtiapine FUMARATE 200 MG TABLET PO SCH (21:36)
[2016-08-18] MEDS: THIAMINE HCL 100 MG TABLET (FP) PO SCH (21:36)
[2016-08-18] MEDS: diphenhydrAMINE HCL 50 MG CAPSULE PO PRN (21:37)
[2016-08-19] MEDS: NICOTINE POLACRILEX 2 MG GUM BUC PRN ×4 (06:16→17:47)
[2016-08-19] MEDS: FERROUS SO4 325 MG TABLET (FP) PO SCH ×3 (07:07→17:37)
[2016-08-19] MEDS ORDERED: PT OWN MED DRAWER 7, Y5N ONE (08:28)
[2016-08-19] MEDS: PRENATAL VITAMINS W/ FOLIC ACID TABLET (FP) PO SCH (09:39)
[2016-08-19] MEDS: cloNIDine HCL 0.1 MG TABLET PO SCH ×2 (09:39→21:12)
[2016-08-19] MEDS: busPIRone HCL 10 MG TABLET (FP) PO SCH ×2 (09:39→21:12)
[2016-08-19] MEDS: FLUTICASONE PROP 0.05% 16 GM NASAL SPRAY NS SCH (09:39)
[2016-08-19] MEDS: QUEtiapine FUMARATE 100 MG TABLET (FP) PO SCH (09:39)
[2016-08-19] MEDS: RANITIDINE HCL 150 MG TABLET (FP) PO SCH ×2 (09:45→21:12)
[2016-08-19] MEDS: THIAMINE HCL 100 MG TABLET (FP) PO SCH (21:11)
[2016-08-19] MEDS: QUEtiapine FUMARATE 200 MG TABLET PO SCH (21:12)
[2016-08-19] MEDS: diphenhydrAMINE HCL 50 MG CAPSULE PO PRN (21:12)
[2016-08-20] MEDS: NICOTINE POLACRILEX 2 MG GUM BUC PRN ×4 (06:17→17:00)
[2016-08-20] MEDS: FERROUS SO4 325 MG TABLET (FP) PO SCH ×3 (07:57→16:56)
[2016-08-20] MEDS: busPIRone HCL 10 MG TABLET (FP) PO SCH ×2 (09:34→21:09)
[2016-08-20] MEDS: PRENATAL VITAMINS W/ FOLIC ACID TABLET (FP) PO SCH (09:34)
[2016-08-20] MEDS: RANITIDINE HCL 150 MG TABLET (FP) PO SCH ×2 (09:34→21:09)
[2016-08-20] MEDS: QUEtiapine FUMARATE 100 MG TABLET (FP) PO SCH (09:34)
[2016-08-20] MEDS: cloNIDine HCL 0.1 MG TABLET PO SCH ×2 (09:34→21:09)
[2016-08-20] MEDS: FLUTICASONE PROP 0.05% 16 GM NASAL SPRAY NS SCH (09:35)
--- NOTE | 2016-08-20 10:38 | PN ---
Psychiatric Progress Note Vital Signs: Vital Signs Period Temp Pulse Resp BP Sys/Combs Pulse Ox Last 24 Hr 98.3 F-98.4 F 76-102 18-20 111-146/71-74 Date of Session: 08/20/16 Chief Complaint:: Sleep is still big problem." HPI: Patient addressed Alcohol,Cocaine and Opioid dependence comorbid with Bipolar II disorder. ROS: Significant for Anemia,GERD,weight loss. Current Medications: Active Medications Generic Name Dose Route Start Last Admin Trade Name Freq PRN Reason Stop Dose Admin Acetaminophen 650 mg 08/11/16 13:14 Tylenol - PO Q4H PRN FEVER OR PAIN Al Hydroxide/Mg Hydroxide 30 ml 08/11/16 13:14 08/14/16 10:16 Mylanta Oral Suspension - PO 30 ml Q6H PRN Administration DYSPEPSIA Buspirone HCl 10 mg 08/11/16 22:00 08/20/16 09:34 Buspar - PO 10 mg BID RAND Administration Clonidine 0.1 mg 08/12/16 10:00 08/20/16 09:34 Catapres - PO 0.1 mg BID RAND Administration Diphenhydramine HCl 50 mg 08/11/16 13:14 08/19/16 21:12 Benadryl - PO 50 mg HSMR1 PRN Administration FOR ITCHING Eucalyptus/Menthol/Phenol/Sorbitol 1 each 08/11/16 13:14 Cepastat Lozenge - MM Q4H PRN SORE THROAT Ferrous Sulfate 325 mg 08/11/16 17:30 08/20/16 07:57 Feosol - PO 325 mg TIDCM RAND Administration Fluticasone Propionate 2 spray 08/12/16 10:00 08/20/16 09:35 Flonase - NS 2 spray DAILY RAND Administration Guaifenesin 10 ml 08/11/16 13:14 Robitussin Dm - PO Q6H PRN COUGH Ibuprofen 600 mg 08/12/16 09:56 08/17/16 17:32 Motrin - PO 600 mg Q6H PRN Administration PAIN Loperamide HCl 4 mg 08/11/16 13:14 Imodium - PO Q6H PRN DIARRHEA Magnesium Hydroxide 30 ml 08/11/16 13:14 Milk Of Magnesia - PO DAILY PRN CONSTIPATION Nicotine Polacrilex 2 mg 08/11/16 13:14 08/20/16 08:31 Nicorette Gum - BUC 2 mg Q2H PRN Administration NICOTINE REPLACEMENT RX Multivit/Folic Acid/Iron 1 tab 08/12/16 10:00 08/20/16 09:34 Vitamins (Sjr) - PO 1 tab DAILY RAND Administration Pseudoephedrine/Triprolidine 1 combo 08/11/16 13:14 08/17/16 21:15 Actifed - PO 1 combo TID PRN Administration NASAL CONGESTION Quetiapine Fumarate 100 mg 08/12/16 10:00 08/20/16 09:34 Seroquel - PO 100 mg DAILY RAND Administration Quetiapine Fumarate 250 mg 08/20/16 22:00 Seroquel - PO HS RAND Ranitidine HCl 150 mg 08/11/16 22:00 08/20/16 09:34 Zantac - PO 150 mg BID RAND Administration Thiamine HCl 100 mg 08/11/16 22:00 08/19/16 21:11 Vitamin B1 - PO 100 mg HS RAND Administration Current Side Effect: No Lab tests ordered: No Lab tests reviewed: Yes Provider note:: Chart was revuewed,patient was evaluated in my office and treatment plan including medication management was discussed.Properties of Seroquel has been discussed including side effects,benefits and dose adjustment.Continue Serqouel 100 mg po daily, Seroquel 200 mg po hs will be adjusted to 250 mg po hs. Supportive therapy provided. Total face to face time:: 30 Mental Status Exam - Mental Status Exam Alert and Oriented to: Time, Place, Person Cognitive Function: Grossly Intact Patient Appearance: Well Groomed Mood: Euthymic Affect: Mood Congruent Patient Behavior: Cooperative Speech Pattern: Clear Voice Loudness: Normal Thought Process: Goal Oriented Thought Disorder: Not Present Hallucinations: Denies Suicidal Ideation: Denies Homicidal Ideation: Denies Insight/Judgement: Fair Sleep: Difficulty falling asleep Appetite: Good Muscle strength/Tone: Normal Psychiatric Treatment Plan - Problem List (1) Anemia Current Visit: Yes (2) Nicotine dependence Current Visit: Yes Qualifiers: Nicotine product type: cigarettes Substance use status: in withdrawal Qualified Code(s): F17.213 - Nicotine dependence, cigarettes, with withdrawal (3) Weight loss Current Visit: Yes (4) Cocaine dependence, uncomplicated Current Visit: Yes (5) GERD (gastroesophageal reflux disease) Current Visit: Yes Qualifiers: Esophagitis presence: without esophagitis Qualified Code(s): K21.9 - Gastro-esophageal reflux disease without esophagitis (6) Bipolar II disorder Current Visit: Yes (7) Alcohol dependence Current Visit: Yes (8) Opioid dependence Current Visit: Yes
[2016-08-20] MEDS: THIAMINE HCL 100 MG TABLET (FP) PO SCH (21:09)
[2016-08-20] MEDS: QUEtiapine FUMARATE 50 MG TABLET PO SCH ×2 (21:11)
[2016-08-20] MEDS ORDERED: QUEtiapine FUMARATE 50 MG TABLET PO SCH (22:00)
[2016-08-21] MEDS: NICOTINE POLACRILEX 2 MG GUM BUC PRN ×4 (06:40→17:52)
[2016-08-21] MEDS: FERROUS SO4 325 MG TABLET (FP) PO SCH ×3 (07:39→17:04)
[2016-08-21] MEDS: QUEtiapine FUMARATE 100 MG TABLET (FP) PO SCH (09:39)
[2016-08-21] MEDS: busPIRone HCL 10 MG TABLET (FP) PO SCH ×2 (09:39→21:08)
[2016-08-21] MEDS: cloNIDine HCL 0.1 MG TABLET PO SCH ×2 (09:39→21:08)
[2016-08-21] MEDS: FLUTICASONE PROP 0.05% 16 GM NASAL SPRAY NS SCH (09:39)
[2016-08-21] MEDS: PRENATAL VITAMINS W/ FOLIC ACID TABLET (FP) PO SCH (09:40)
[2016-08-21] MEDS: RANITIDINE HCL 150 MG TABLET (FP) PO SCH ×2 (09:40→21:11)
[2016-08-21] MEDS: QUEtiapine FUMARATE 50 MG TABLET PO SCH (21:07)
[2016-08-21] MEDS: THIAMINE HCL 100 MG TABLET (FP) PO SCH (21:08)
[2016-08-22] MEDS: FERROUS SO4 325 MG TABLET (FP) PO SCH ×3 (07:39→17:17)
[2016-08-22] MEDS: NICOTINE POLACRILEX 2 MG GUM BUC PRN ×3 (07:47→18:11)
[2016-08-22] MEDS ORDERED: PT OWN MED DRAWER 7, Y5N ONE ×3 (08:40→21:29)
[2016-08-22] MEDS: PRENATAL VITAMINS W/ FOLIC ACID TABLET (FP) PO SCH (09:29)
[2016-08-22] MEDS: RANITIDINE HCL 150 MG TABLET (FP) PO SCH ×2 (09:29→21:28)
[2016-08-22] MEDS: busPIRone HCL 10 MG TABLET (FP) PO SCH ×2 (09:29→21:28)
[2016-08-22] MEDS: QUEtiapine FUMARATE 100 MG TABLET (FP) PO SCH (09:30)
[2016-08-22] MEDS: cloNIDine HCL 0.1 MG TABLET PO SCH ×2 (09:30→21:28)
[2016-08-22] MEDS: FLUTICASONE PROP 0.05% 16 GM NASAL SPRAY NS SCH (09:30)
[2016-08-22] MEDS: QUEtiapine FUMARATE 50 MG TABLET PO SCH (21:28)
[2016-08-22] MEDS: THIAMINE HCL 100 MG TABLET (FP) PO SCH (21:28)
[2016-08-22] MEDS: IBUPROFEN 600 MG TABLET (FP) PO PRN (21:30)
[2016-08-23] MEDS: NICOTINE POLACRILEX 2 MG GUM BUC PRN ×3 (06:08→13:01)
[2016-08-23] MEDS ORDERED: PT OWN MED DRAWER 7, Y5N ONE ×2 (06:08→08:58)
[2016-08-23] MEDS: FERROUS SO4 325 MG TABLET (FP) PO SCH ×3 (07:24→16:45)
[2016-08-23] MEDS: PRENATAL VITAMINS W/ FOLIC ACID TABLET (FP) PO SCH (09:50)
[2016-08-23] MEDS: cloNIDine HCL 0.1 MG TABLET PO SCH ×2 (09:50→21:22)
[2016-08-23] MEDS: busPIRone HCL 10 MG TABLET (FP) PO SCH ×2 (09:50→21:22)
[2016-08-23] MEDS: QUEtiapine FUMARATE 100 MG TABLET (FP) PO SCH (09:50)
[2016-08-23] MEDS: RANITIDINE HCL 150 MG TABLET (FP) PO SCH ×2 (09:50→21:22)
[2016-08-23] MEDS: FLUTICASONE PROP 0.05% 16 GM NASAL SPRAY NS SCH (10:09)
[2016-08-23] MEDS ORDERED: QUEtiapine FUMARATE 25 MG TABLET (FP) ONE (21:19)
[2016-08-23] MEDS: THIAMINE HCL 100 MG TABLET (FP) PO SCH (21:22)
[2016-08-23] MEDS: QUEtiapine FUMARATE 50 MG TABLET PO SCH (21:23)
[2016-08-24] MEDS: NICOTINE POLACRILEX 2 MG GUM BUC PRN ×4 (06:33→17:57)
[2016-08-24] MEDS: FERROUS SO4 325 MG TABLET (FP) PO SCH ×3 (07:26→17:18)
[2016-08-24] MEDS ORDERED: PT OWN MED DRAWER 7, Y5N ONE ×2 (08:45→15:48)
[2016-08-24] MEDS: PRENATAL VITAMINS W/ FOLIC ACID TABLET (FP) PO SCH (09:36)
[2016-08-24] MEDS: RANITIDINE HCL 150 MG TABLET (FP) PO SCH ×2 (09:36→21:09)
[2016-08-24] MEDS: busPIRone HCL 10 MG TABLET (FP) PO SCH ×2 (09:36→21:09)
[2016-08-24] MEDS: QUEtiapine FUMARATE 100 MG TABLET (FP) PO SCH (09:36)
[2016-08-24] MEDS: cloNIDine HCL 0.1 MG TABLET PO SCH ×2 (09:36→21:10)
[2016-08-24] MEDS: FLUTICASONE PROP 0.05% 16 GM NASAL SPRAY NS SCH (09:37)
[2016-08-24] MEDS: IBUPROFEN 600 MG TABLET (FP) PO PRN ×2 (12:21→21:08)
[2016-08-24] MEDS: THIAMINE HCL 100 MG TABLET (FP) PO SCH (21:08)
[2016-08-24] MEDS: QUEtiapine FUMARATE 50 MG TABLET PO SCH (21:09)
[2016-08-25] MEDS: FERROUS SO4 325 MG TABLET (FP) PO SCH ×3 (07:04→16:55)
[2016-08-25] MEDS: NICOTINE POLACRILEX 2 MG GUM BUC PRN ×5 (07:05→21:20)
[2016-08-25] MEDS: FLUTICASONE PROP 0.05% 16 GM NASAL SPRAY NS SCH (09:36)
[2016-08-25] MEDS: busPIRone HCL 10 MG TABLET (FP) PO SCH (09:36)
[2016-08-25] MEDS: cloNIDine HCL 0.1 MG TABLET PO SCH ×2 (09:36→21:19)
[2016-08-25] MEDS: QUEtiapine FUMARATE 100 MG TABLET (FP) PO SCH (09:37)
[2016-08-25] MEDS: PRENATAL VITAMINS W/ FOLIC ACID TABLET (FP) PO SCH (09:37)
[2016-08-25] MEDS: RANITIDINE HCL 150 MG TABLET (FP) PO SCH ×2 (09:37→21:20)
[2016-08-25] MEDS: IBUPROFEN 600 MG TABLET (FP) PO PRN ×2 (09:37→16:57)
[2016-08-25] MEDS ORDERED: PT OWN MED DRAWER 7, Y5N ONE (09:42)
--- NOTE | 2016-08-25 16:27 | PN ---
Psychiatric Progress Note Vital Signs: Vital Signs Period Temp Pulse Resp BP Sys/Combs Pulse Ox Last 24 Hr 98 F 78-103 18-18 118-127/83-85 Date of Session: 08/25/16 Chief Complaint:: [place]ako still nervious,anxious." HPI: Patient addressed Opioid ,Coiacine and Alcohol dependence comorbid with Bipolar II disorder. ROS: Significant for Anemia,GERD. Current Medications: Active Medications Generic Name Dose Route Start Last Admin Trade Name Freq PRN Reason Stop Dose Admin Acetaminophen 650 mg 08/11/16 13:14 Tylenol - PO Q4H PRN FEVER OR PAIN Al Hydroxide/Mg Hydroxide 30 ml 08/11/16 13:14 08/14/16 10:16 Mylanta Oral Suspension - PO 30 ml Q6H PRN Administration DYSPEPSIA Buspirone HCl 10 mg 08/11/16 22:00 08/25/16 09:36 Buspar - PO 10 mg BID RAND Administration Clonidine 0.1 mg 08/12/16 10:00 08/25/16 09:36 Catapres - PO 0.1 mg BID RAND Administration Diphenhydramine HCl 50 mg 08/11/16 13:14 08/19/16 21:12 Benadryl - PO 50 mg HSMR1 PRN Administration FOR ITCHING Eucalyptus/Menthol/Phenol/Sorbitol 1 each 08/11/16 13:14 Cepastat Lozenge - MM Q4H PRN SORE THROAT Ferrous Sulfate 325 mg 08/11/16 17:30 08/25/16 12:03 Feosol - PO 325 mg TIDCM RAND Administration Fluticasone Propionate 2 spray 08/12/16 10:00 08/25/16 09:36 Flonase - NS 2 spray DAILY RAND Administration Guaifenesin 10 ml 08/11/16 13:14 Robitussin Dm - PO Q6H PRN COUGH Ibuprofen 600 mg 08/12/16 09:56 08/25/16 09:37 Motrin - PO 600 mg Q6H PRN Administration PAIN Loperamide HCl 4 mg 08/11/16 13:14 Imodium - PO Q6H PRN DIARRHEA Magnesium Hydroxide 30 ml 08/11/16 13:14 Milk Of Magnesia - PO DAILY PRN CONSTIPATION Nicotine Polacrilex 2 mg 08/11/16 13:14 08/25/16 12:20 Nicorette Gum - BUC 2 mg Q2H PRN Administration NICOTINE REPLACEMENT RX Multivit/Folic Acid/Iron 1 tab 08/12/16 10:00 08/25/16 09:37 Vitamins (Sjr) - PO 1 tab DAILY RAND Administration Pseudoephedrine/Triprolidine 1 combo 08/11/16 13:14 08/17/16 21:15 Actifed - PO 1 combo TID PRN Administration NASAL CONGESTION Quetiapine Fumarate 100 mg 08/12/16 10:00 08/25/16 09:37 Seroquel - PO 100 mg DAILY RAND Administration Quetiapine Fumarate 250 mg 08/20/16 21:00 08/24/16 21:09 Seroquel - PO 250 mg HS RAND Administration Ranitidine HCl 150 mg 08/11/16 22:00 08/25/16 09:37 Zantac - PO 150 mg BID RAND Administration Thiamine HCl 100 mg 08/11/16 22:00 08/24/16 21:08 Vitamin B1 - PO 100 mg HS RAND Administration Current Side Effect: No Lab tests ordered: No Lab tests reviewed: Yes Provider note:: Chart was revuewed,patient was evaluated,treatment plan , medication management has been discussed with the patient.Patient reports still having anxiety episodes for no reasons,difficulties to stay still.Properties of Buspar has been discussed with the patient including side effects,benefits and dose adjustement.Buspar 10 mg po bid will be adjusted to 15 mg po bid. Supportive therapy provided. Total face to face time:: 30 Mental Status Exam - Mental Status Exam Alert and Oriented to: Time, Place, Person Cognitive Function: Grossly Intact Patient Appearance: Well Groomed Mood: Anxious Affect: Mood Congruent, Labile Patient Behavior: Cooperative Speech Pattern: Clear Voice Loudness: Normal Thought Process: Goal Oriented Thought Disorder: Not Present Hallucinations: Denies Suicidal Ideation: Denies Homicidal Ideation: Denies Insight/Judgement: Fair Sleep: Fair Appetite: Good Muscle strength/Tone: Normal Gait/Station: Normal Psychiatric Treatment Plan - Problem List (1) Anemia Current Visit: Yes (2) Nicotine dependence Current Visit: Yes Qualifiers: Nicotine product type: cigarettes Substance use status: in withdrawal Qualified Code(s): F17.213 - Nicotine dependence, cigarettes, with withdrawal (3) Weight loss Current Visit: Yes (4) Cocaine dependence, uncomplicated Current Visit: Yes (5) GERD (gastroesophageal reflux disease) Current Visit: Yes Qualifiers: Esophagitis presence: without esophagitis Qualified Code(s): K21.9 - Gastro-esophageal reflux disease without esophagitis (6) Bipolar II disorder Current Visit: Yes (7) Alcohol dependence Current Visit: Yes (8) Opioid dependence Current Visit: Yes
[2016-08-25] MEDS: diphenhydrAMINE HCL 50 MG CAPSULE PO PRN (21:19)
[2016-08-25] MEDS: QUEtiapine FUMARATE 50 MG TABLET PO SCH (21:19)
[2016-08-25] MEDS: THIAMINE HCL 100 MG TABLET (FP) PO SCH (21:20)
[2016-08-26] MEDS: NICOTINE POLACRILEX 2 MG GUM BUC PRN ×6 (06:52→21:05)
[2016-08-26] MEDS: FERROUS SO4 325 MG TABLET (FP) PO SCH ×3 (07:18→16:55)
[2016-08-26] MEDS: cloNIDine HCL 0.1 MG TABLET PO SCH ×2 (09:32→21:05)
[2016-08-26] MEDS: PRENATAL VITAMINS W/ FOLIC ACID TABLET (FP) PO SCH (09:32)
[2016-08-26] MEDS: QUEtiapine FUMARATE 100 MG TABLET (FP) PO SCH (09:32)
[2016-08-26] MEDS: RANITIDINE HCL 150 MG TABLET (FP) PO SCH ×2 (09:32→21:05)
[2016-08-26] MEDS: FLUTICASONE PROP 0.05% 16 GM NASAL SPRAY NS SCH (09:32)
[2016-08-26] MEDS ORDERED: PT OWN MED DRAWER 7, Y5N ONE ×2 (09:48→13:28)
--- NOTE | 2016-08-26 15:09 | PN ---
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 P : Order valtrex
[2016-08-26] MEDS: IBUPROFEN 600 MG TABLET (FP) PO PRN (16:55)
[2016-08-26] MEDS: diphenhydrAMINE HCL 50 MG CAPSULE PO PRN (21:04)
[2016-08-26] MEDS: QUEtiapine FUMARATE 50 MG TABLET PO SCH (21:05)
[2016-08-26] MEDS: valACYclovir HCL 500 MG TABLET (FP) PO SCH (21:05)
[2016-08-26] MEDS: THIAMINE HCL 100 MG TABLET (FP) PO SCH (21:05)
[2016-08-27] MEDS: P-EPHED 60MG/TRIPROLIDI 2.5MG TABLET PO PRN (00:55)
[2016-08-27] MEDS: NICOTINE POLACRILEX 2 MG GUM BUC PRN ×4 (06:29→17:05)
[2016-08-27] MEDS: FERROUS SO4 325 MG TABLET (FP) PO SCH ×3 (07:21→17:05)
[2016-08-27] MEDS ORDERED: PT OWN MED DRAWER 7, Y5N ONE (08:23)
[2016-08-27] MEDS: FLUTICASONE PROP 0.05% 16 GM NASAL SPRAY NS SCH (09:23)
[2016-08-27] MEDS: QUEtiapine FUMARATE 100 MG TABLET (FP) PO SCH (09:23)
[2016-08-27] MEDS: cloNIDine HCL 0.1 MG TABLET PO SCH ×2 (09:24→21:06)
[2016-08-27] MEDS: valACYclovir HCL 500 MG TABLET (FP) PO SCH ×2 (09:24→21:06)
[2016-08-27] MEDS: RANITIDINE HCL 150 MG TABLET (FP) PO SCH ×2 (09:24→21:07)
[2016-08-27] MEDS: PRENATAL VITAMINS W/ FOLIC ACID TABLET (FP) PO SCH (09:24)
[2016-08-27] MEDS: QUEtiapine FUMARATE 50 MG TABLET PO SCH (21:06)
[2016-08-27] MEDS: THIAMINE HCL 100 MG TABLET (FP) PO SCH (21:07)
[2016-08-28] MEDS: P-EPHED 60MG/TRIPROLIDI 2.5MG TABLET PO PRN (06:29)
[2016-08-28] MEDS: NICOTINE POLACRILEX 2 MG GUM BUC PRN ×4 (06:30→17:22)
[2016-08-28] MEDS: FERROUS SO4 325 MG TABLET (FP) PO SCH ×3 (07:34→17:21)
[2016-08-28] MEDS: RANITIDINE HCL 150 MG TABLET (FP) PO SCH ×2 (09:52→21:11)
[2016-08-28] MEDS: FLUTICASONE PROP 0.05% 16 GM NASAL SPRAY NS SCH (09:52)
[2016-08-28] MEDS: cloNIDine HCL 0.1 MG TABLET PO SCH ×2 (09:52→21:11)
[2016-08-28] MEDS: QUEtiapine FUMARATE 100 MG TABLET (FP) PO SCH (09:53)
[2016-08-28] MEDS: valACYclovir HCL 500 MG TABLET (FP) PO SCH ×2 (09:53→21:11)
[2016-08-28] MEDS: PRENATAL VITAMINS W/ FOLIC ACID TABLET (FP) PO SCH (09:53)
[2016-08-28] MEDS ORDERED: PT OWN MED DRAWER 7, Y5N ONE (09:56)
[2016-08-28] MEDS: IBUPROFEN 600 MG TABLET (FP) PO PRN (10:20)
[2016-08-28] MEDS: diphenhydrAMINE HCL 50 MG CAPSULE PO PRN (21:11)
[2016-08-28] MEDS: QUEtiapine FUMARATE 50 MG TABLET PO SCH (21:11)
[2016-08-28] MEDS: THIAMINE HCL 100 MG TABLET (FP) PO SCH (21:11)
[2016-08-29] MEDS: P-EPHED 60MG/TRIPROLIDI 2.5MG TABLET PO PRN (07:00)
[2016-08-29] MEDS: NICOTINE POLACRILEX 2 MG GUM BUC PRN ×5 (07:00→18:44)
[2016-08-29] MEDS: FERROUS SO4 325 MG TABLET (FP) PO SCH ×3 (07:00→18:38)
[2016-08-29] MEDS ORDERED: PT OWN MED DRAWER 7, Y5N ONE (08:30)
[2016-08-29] MEDS: RANITIDINE HCL 150 MG TABLET (FP) PO SCH ×2 (09:59→21:29)
[2016-08-29] MEDS: cloNIDine HCL 0.1 MG TABLET PO SCH ×2 (09:59→21:29)
[2016-08-29] MEDS: QUEtiapine FUMARATE 100 MG TABLET (FP) PO SCH (09:59)
[2016-08-29] MEDS: PRENATAL VITAMINS W/ FOLIC ACID TABLET (FP) PO SCH (09:59)
[2016-08-29] MEDS: FLUTICASONE PROP 0.05% 16 GM NASAL SPRAY NS SCH (09:59)
[2016-08-29] MEDS: valACYclovir HCL 500 MG TABLET (FP) PO SCH ×2 (09:59→21:29)
[2016-08-29] MEDS: THIAMINE HCL 100 MG TABLET (FP) PO SCH (21:29)
[2016-08-29] MEDS: diphenhydrAMINE HCL 50 MG CAPSULE PO PRN (21:29)
[2016-08-29] MEDS: QUEtiapine FUMARATE 50 MG TABLET PO SCH (21:29)
[2016-08-30] MEDS ORDERED: PT OWN MED DRAWER 7, Y5N ONE ×4 (00:26→09:34)
[2016-08-30] MEDS: FERROUS SO4 325 MG TABLET (FP) PO SCH ×3 (07:08→17:27)
[2016-08-30] MEDS: NICOTINE POLACRILEX 2 MG GUM BUC PRN ×5 (07:08→21:10)
[2016-08-30] MEDS: FLUTICASONE PROP 0.05% 16 GM NASAL SPRAY NS SCH (09:26)
[2016-08-30] MEDS: valACYclovir HCL 500 MG TABLET (FP) PO SCH ×2 (09:27→21:08)
[2016-08-30] MEDS: RANITIDINE HCL 150 MG TABLET (FP) PO SCH ×2 (09:27→21:08)
[2016-08-30] MEDS: QUEtiapine FUMARATE 100 MG TABLET (FP) PO SCH (09:27)
[2016-08-30] MEDS: PRENATAL VITAMINS W/ FOLIC ACID TABLET (FP) PO SCH (09:27)
[2016-08-30] MEDS: cloNIDine HCL 0.1 MG TABLET PO SCH ×2 (09:27→21:08)
[2016-08-30] MEDS: QUEtiapine FUMARATE 50 MG TABLET PO SCH (21:07)
[2016-08-30] MEDS: THIAMINE HCL 100 MG TABLET (FP) PO SCH (21:08)
[2016-08-31] MEDS: NICOTINE POLACRILEX 2 MG GUM BUC PRN ×5 (07:05→21:05)
[2016-08-31] MEDS: FERROUS SO4 325 MG TABLET (FP) PO SCH ×3 (07:05→17:38)
[2016-08-31] MEDS: QUEtiapine FUMARATE 100 MG TABLET (FP) PO SCH (09:14)
[2016-08-31] MEDS: cloNIDine HCL 0.1 MG TABLET PO SCH ×2 (09:14→21:05)
[2016-08-31] MEDS: valACYclovir HCL 500 MG TABLET (FP) PO SCH ×2 (09:14→21:05)
[2016-08-31] MEDS: FLUTICASONE PROP 0.05% 16 GM NASAL SPRAY NS SCH (09:14)
[2016-08-31] MEDS: PRENATAL VITAMINS W/ FOLIC ACID TABLET (FP) PO SCH (09:14)
[2016-08-31] MEDS: RANITIDINE HCL 150 MG TABLET (FP) PO SCH ×2 (09:14→21:05)
[2016-08-31] MEDS ORDERED: PT OWN MED DRAWER 7, Y5N ONE (09:19)
[2016-08-31] MEDS: QUEtiapine FUMARATE 50 MG TABLET PO SCH (21:04)
[2016-08-31] MEDS: THIAMINE HCL 100 MG TABLET (FP) PO SCH (21:05)
--- NOTE | 2016-09-01 06:59 | PN ---
Psychiatric Progress Note Vital Signs: Vital Signs Period Temp Pulse Resp BP Sys/Combs Pulse Ox Last 24 Hr 98.2 F 88-94 16-16 97-125/62-75 Date of Session: 09/01/16 Chief Complaint:: Discharge Note ROS: Patient addressing Alcohol, Opoid and Cocaine Dependence comorbid with Nicotine Dependence And Bipolar II Disorder Current Medications: Active Medications Generic Name Dose Route Start Last Admin Trade Name Freq PRN Reason Stop Dose Admin Acetaminophen 650 mg 08/11/16 13:14 Tylenol - PO Q4H PRN FEVER OR PAIN Al Hydroxide/Mg Hydroxide 30 ml 08/11/16 13:14 08/14/16 10:16 Mylanta Oral Suspension - PO 30 ml Q6H PRN Administration DYSPEPSIA Buspirone HCl 15 mg 08/25/16 22:00 08/31/16 21:05 Buspar - PO 15 mg BID RAND Administration Clonidine 0.1 mg 08/12/16 10:00 08/31/16 21:05 Catapres - PO 0.1 mg BID RAND Administration Diphenhydramine HCl 50 mg 08/11/16 13:14 08/29/16 21:29 Benadryl - PO 50 mg HSMR1 PRN Administration FOR ITCHING Eucalyptus/Menthol/Phenol/Sorbitol 1 each 08/11/16 13:14 Cepastat Lozenge - MM Q4H PRN SORE THROAT Ferrous Sulfate 325 mg 08/11/16 17:30 08/31/16 17:38 Feosol - PO 325 mg TIDCM RAND Administration Fluticasone Propionate 2 spray 08/12/16 10:00 08/31/16 09:14 Flonase - NS 2 spray DAILY RAND Administration Guaifenesin 10 ml 08/11/16 13:14 Robitussin Dm - PO Q6H PRN COUGH Ibuprofen 600 mg 08/12/16 09:56 08/28/16 10:20 Motrin - PO 600 mg Q6H PRN Administration PAIN Loperamide HCl 4 mg 08/11/16 13:14 Imodium - PO Q6H PRN DIARRHEA Magnesium Hydroxide 30 ml 08/11/16 13:14 Milk Of Magnesia - PO DAILY PRN CONSTIPATION Nicotine Polacrilex 2 mg 08/11/16 13:14 08/31/16 21:05 Nicorette Gum - BUC 2 mg Q2H PRN Administration NICOTINE REPLACEMENT RX Multivit/Folic Acid/Iron 1 tab 08/12/16 10:00 08/31/16 09:14 Vitamins (Sjr) - PO 1 tab DAILY RAND Administration Pseudoephedrine/Triprolidine 1 combo 08/11/16 13:14 08/29/16 07:00 Actifed - PO 1 combo TID PRN Administration NASAL CONGESTION Quetiapine Fumarate 100 mg 08/12/16 10:00 08/31/16 09:14 Seroquel - PO 100 mg DAILY RAND Administration Quetiapine Fumarate 250 mg 08/20/16 21:00 08/31/16 21:04 Seroquel - PO 250 mg HS RAND Administration Ranitidine HCl 150 mg 08/11/16 22:00 08/31/16 21:05 Zantac - PO 150 mg BID RAND Administration Thiamine HCl 100 mg 08/11/16 22:00 08/31/16 21:05 Vitamin B1 - PO 100 mg HS RAND Administration Valacyclovir HCl 500 mg 08/26/16 22:00 08/31/16 21:05 Valtrex - PO 500 mg BID RAND Administration Medication(s) Change(s): Anemia, GERD were medically managed Current Side Effect: No Lab tests ordered: Yes Lab tests reviewed: Yes Provider note:: Patient has completed this program today. She has met her treatment goals and will continue to address her issues in outpatient program at [facility] at [address] [place] [address]. She verbalized understanding of the consequences of her addiction and recognized the impact of her addiction on parenting and caring for her children.She responded well to Buspar 15 mg po BID and Seroquel 100 mg daily and 250 mg HS. Scripts for these medications are electronically transmitted to [facility] at [address] [place] [address]. She is stable for discharge today Total face to face time:: 35 Mental Status Exam - Mental Status Exam Alert and Oriented to: Time, Place, Person Cognitive Function: Fair Patient Appearance: Well Groomed Mood: Hopeful, Euthymic Affect: Appropriate Patient Behavior: Cooperative Speech Pattern: Clear Voice Loudness: Normal Thought Process: Intact, Goal Oriented Thought Disorder: Not Present Hallucinations: Denies Suicidal Ideation: Denies Homicidal Ideation: Denies Insight/Judgement: Fair Sleep: Well Appetite: Good Gait/Station: Normal Psychiatric Treatment Plan - Problem List (1) Alcohol dependence Current Visit: Yes (2) Opioid dependence Current Visit: Yes (3) Cocaine dependence, uncomplicated Current Visit: Yes (4) Nicotine dependence Current Visit: Yes Qualifiers: Nicotine product type: cigarettes Substance use status: in withdrawal Qualified Code(s): F17.213 - Nicotine dependence, cigarettes, with withdrawal (5) Bipolar II disorder Current Visit: Yes (6) GERD (gastroesophageal reflux disease) Current Visit: Yes Qualifiers: Esophagitis presence: without esophagitis Qualified Code(s): K21.9 - Gastro-esophageal reflux disease without esophagitis (7) Anemia Current Visit: Yes Initial treatment plan: Patient is discharged today and referred to [facility] for outpatient treatment
[2016-09-01] MEDS: FERROUS SO4 325 MG TABLET (FP) PO SCH (07:12)
[2016-09-01] MEDS: NICOTINE POLACRILEX 2 MG GUM BUC PRN ×2 (07:12→09:12)
[2016-09-01 07:15] VITALS: TEMP 98.1
[2016-09-01] MEDS ORDERED: PT OWN MED DRAWER 7, Y5N ONE (08:33)
[2016-09-01] MEDS: PRENATAL VITAMINS W/ FOLIC ACID TABLET (FP) PO SCH (09:01)
[2016-09-01] MEDS: FLUTICASONE PROP 0.05% 16 GM NASAL SPRAY NS SCH (09:01)
[2016-09-01] MEDS: valACYclovir HCL 500 MG TABLET (FP) PO SCH (09:01)
[2016-09-01] MEDS: RANITIDINE HCL 150 MG TABLET (FP) PO SCH (09:02)
[2016-09-01] MEDS: cloNIDine HCL 0.1 MG TABLET PO SCH (09:02)
[2016-09-01] MEDS: QUEtiapine FUMARATE 100 MG TABLET (FP) PO SCH (09:02)
[2016-09-01 09:06] VITALS: BP 129/81; PULSE 105
== END 2016-09-01 09:12 | disposition home or self-care (01) | DRG 772 ==
LOC: YASAS 12:15 → Y3E 12:16
PROVIDERS: ADMIT Psychiatry & Neurology Psychiatry; ATTEND Psychiatry & Neurology Psychiatry
PROC: HZ42ZZZ Group Counseling for Substance Abuse Treatment, Cognitive-Behavioral (ICD-10-PCS; principal; 2016-09-01)
DX: F11.20 Opioid dependence, uncomplicated (principal); F10.20 Alcohol dependence, uncomplicated; F14.20 Cocaine dependence, uncomplicated; F17.213 Nicotine dependence, cigarettes, with withdrawal; F31.81 Bipolar II disorder; K21.9 Gastro-esophageal reflux disease without esophagitis; D64.9 Anemia, unspecified; R63.4 Abnormal weight loss; Z68.34 Body mass index [BMI] 34.0-34.9, adult
CPT/HCPCS: 36415; 87389

== ENCOUNTER 2017-06-20 15:13 | Inpatient (IN) | payer OTHER ==
[2017-06-20 15:24] VITALS: BMI 27.9
--- NOTE | 2017-06-20 16:20 | HP ---
CIWA Score - CIWA Score Nausea/Vomitin Muscle Tremors: 2 Anxiety: 2 Agitation: 2 Paroxysmal Sweats: 2 Orientation: 0-Oriented Tacttile Disturbances: 1-Very Mild Itch/Numbness Auditory Disturbances: 0-None Visual Disturbances: 1-Very Mild Sensitivity Headache: 3-Moderate CIWA-Ar Total Score: 15 Admission ROS BHS - HPI Chief Complaint: I'm here because I relapsed Allergies/Adverse Reactions: Allergies Allergy/AdvReac Type Severity Reaction Status Date / Time lactose AdvReac Verified 08/05/16 19:20 History of Present Illness: 46 y/o AA woman with alcohol dependence presents for detox. Her last treatment at [facility] was in July of last year, had another treatment at [facility] sometime this year. Exam Limitations: No Limitations - Ebola screening Have you traveled outside of the country in the last 21 days: No Have you had contact with anyone from an Ebola affected area: No Have you been sick,other than usual withdrawal symptoms: No - Review of Systems Constitutional: Chills, Loss of Appetite, Changes in sleep EENT: reports: Blurred Vision Respiratory: reports: Cough (sometimes) Cardiac: reports: Chest Pain (sometimes) GI: reports: Poor Fluid Intake : reports: No Symptoms Reported Musculoskeletal: reports: Back Pain, Muscle Pain, Muscle Weakness Neuro: reports: Headache, Tremors Endocrine: reports: No Symptoms Reported Hematology: reports: Anemia Psychiatric: reports: Anxious, Depressed Other Systems: Reviewed and Negative Patient History - Patient Medical History Hx Anemia: Yes Hx Asthma: No Hx Chronic Obstructive Pulmonary Disease (COPD): No Hx Cancer: No Hx Cardiac Disorders: No Hx Congestive Heart Failure: No Hx Hypertension: No Hx Hypercholesterolemia: No Hx Pacemaker: No HX Cerebrovascular Accident: No Hx Seizures: No Hx Dementia: No Hx Diabetes: No Hx Gastrointestinal Disorders: Yes (GERD) Hx Liver Disease: No Hx Genitourinary Disorders: No Hx Sexually Transmitted Disorders: Yes (Gonorrhea at age 16) Hx Renal Disease (ESRD): No Hx Thyroid Disease: No Hx Human Immunodeficiency Virus (HIV): No Hx Hepatitis C: No Hx Depression: Yes Hx Suicide Attempt: No Hx Bipolar Disorder: Yes Hx Schizophrenia: No - Patient Surgical History Past Surgical History: Yes Hx Neurologic Surgery: No Hx Cataract Extraction: No Hx Cardiac Surgery: No Hx Lung Surgery: No Hx Breast Surgery: No Hx Breast Biopsy: No Hx Abdominal Surgery: No Hx Appendectomy: No Hx Cholecystectomy: No Hx Genitourinary Surgery: No Hx Section: Yes (X 4 ) Hx Orthopedic Surgery: No Hx Hysterectomy: No Anesthesia Reaction: No - PPD History Previous Implant?: Yes Documented Results: Positive w/o proof Implanted On Prior [facility] Admission?: No PPD to be Administered?: No - Reproductive History Patient is a Female of Child Bearing Age (11 -55 yrs old): Yes Last Menstrual Period: 05/28/16 Patient : No - Smoking Cessation Smoking history: Current every day smoker Have you smoked in the past 12 months: Yes Aproximately how many cigarettes per day: 20 Cigars Per Day: 0 Hx Chewing Tobacco Use: No Initiated information on smoking cessation: Yes 'Breaking Loose' booklet given: 06/20/17 - Substance & Tx. History Hx Alcohol Use: Yes (vodka) Hx Substance Use: Yes Substance Use Type: Alcohol, Cocaine Hx Substance Use Treatment: Yes - Substances Abused Alcohol Route: Oral Frequency: Daily Amount used: 1 gallon Age of first use: 13 Date of Last Use: 06/20/17 Cocaine Route: Smoking Frequency: Daily Amount used: 1 gram Age of first use: 13 Date of Last Use: 06/20/17 Family Disease History - Family Disease History Family Disease History: Diabetes: Father, Sister, Heart Disease: Mother ( ) Admission Physical Exam S - Vital Signs Vital Signs: Vital Signs - 24 hr 06/20/17 15:14 Temperature 97.9 F Pulse Rate 95 H Respiratory 20 Rate Blood Pressure 110/75 - Physical General Appearance: Yes: No Apparent Distress HEENTM: Yes: Hearing grossly Normal, Normocephalic, Normal Voice Respiratory: Yes: Chest Non-Tender, Lungs Clear, No Accessory Muscle Use Neck: Yes: No masses,lesions,Nodules Breast: Yes: Breast Exam Deferred Cardiology: Yes: Regular Rhythm, Regular Rate, S1, S2 Abdominal: Yes: Normal Bowel Sounds, Non Tender Genitourinary: Yes: Within Normal Limits Musculoskeletal: Yes: full range of Motion, Gait Steady Neurological: Yes: percolator operator II-XII NML intact, Fully Oriented, Alert, Normal Mood/ Affect, Normal Response Integumentary: Yes: Normal Color Lymphatic: Yes: Within Normal Limits - Diagnostic (1) Alcohol dependence with uncomplicated withdrawal Current Visit: Yes Status: Acute (2) Cocaine dependence, uncomplicated Current Visit: Yes Status: Chronic (3) GERD (gastroesophageal reflux disease) Current Visit: No Status: Chronic Qualifiers: Esophagitis presence: without esophagitis Qualified Code(s): K21.9 - Gastro -esophageal reflux disease without esophagitis (4) Nicotine dependence Current Visit: No Status: Chronic Qualifiers: Nicotine product type: cigarettes Substance use status: in withdrawal Qualified Code(s): F17.213 - Nicotine dependence, cigarettes, with withdrawal Cleared for Admission S - Detox or Rehab [facility] Level of Care: Medically Managed Detox Regimen/Protocol: Librium S Breath Alcohol Content Breath Alcohol Content: 0 Urine Pregancy Test - Result Urine Test Results: Negative- NO Line Present Urine Drug Screen - Results Drug Screen Negative: No Urine Drug Screen Results: QUE-Cocaine, BZO-Benzodiazepines
[2017-06-20] MEDS ORDERED: MAGNESIUM CITRATE 300 ML BOTTLE PO PRN (16:26)
[2017-06-20] MEDS ORDERED: guaiFENesin/D-METHORPHAN HB 10 ML UNIT-DOSE CUPS PO PRN (16:26)
[2017-06-20] MEDS ORDERED: chlordiazePOXIDE HCL 25 MG CAPSULE PO PRN (16:26)
[2017-06-20] MEDS ORDERED: MAGNESIUM HYDROX 2400MG/30ML ORAL SUSPENSION 30 ML CUP PO PRN (16:26)
[2017-06-20] MEDS ORDERED: P-EPHED 60MG/TRIPROLIDI 2.5MG TABLET PO PRN (16:26)
[2017-06-20] MEDS ORDERED: IBUPROFEN 400 MG TABLET (FP) PO PRN (16:26)
[2017-06-20] MEDS ORDERED: hydrOXYzine PAMOATE 50 MG CAPSULE (FP) PO PRN (16:26)
[2017-06-20] MEDS ORDERED: ACETAMINOPHEN 325 MG TABLET (FP) PO PRN (16:26)
[2017-06-20] MEDS ORDERED: MENTHOL/PHENOL 1 EACH UD MM PRN (16:26)
[2017-06-20] MEDS ORDERED: chlordiazePOXIDE HCL 25 MG CAPSULE PO ONE (16:26)
[2017-06-20] MEDS ORDERED: LOPERAMIDE HCL 2 MG CAPSULE PO PRN (16:26)
[2017-06-20] MEDS ORDERED: MAG HYDROX/AL HYDROX/SIMETH 30 ML UNIT-DOSE CUP PO PRN (16:26)
[2017-06-20] MEDS: NICOTINE 21 MG/24 HOURS TOPICAL PATCH TD SCH (19:03)
[2017-06-20] MEDS: chlordiazePOXIDE HCL 25 MG CAPSULE PO SCH ×2 (19:03→22:32)
[2017-06-20] MEDS ORDERED: MELATONIN 5 MG TABLETS PO PRN (22:00)
[2017-06-20] MEDS: THIAMINE HCL 100 MG TABLET (FP) PO SCH (22:31)
[2017-06-20 22:38] LABS: URINE APPEARANCE SLCLOUDY; URINE BILIRUBIN NEGATIVE (<2.0 mg/dL); URINE COLOR YELLOW; URINE GLUCOSE (UA) NEGATIVE (NEGATIVE); URINE KETONE TRACE (NEGATIVE); URINE LEUK ESTERASE TRACE (NEGATIVE); URINE NITRITE NEGATIVE (NEGATIVE); URINE PROTEIN NEGATIVE (NEGATIVE)
[2017-06-20 22:45] LABS: EPI CELLS FEW /HPF (FEW); URINE BACTERIA RARE /hpf (NONE SEEN); URINE HYALINE CAST 1 /lpf; URINE MUCUS RARE
[2017-06-21] MEDS: chlordiazePOXIDE HCL 25 MG CAPSULE PO SCH ×4 (05:11→22:07)
[2017-06-21 09:55] LABS: ALBUMIN 3.2 g/dl (3.4-5.0); ANION GAP 7 (8-16); BLOOD UREA NITROGEN 17 mg/dL (7-18); CALCIUM 8.3 mg/dL (8.5-10.1); CHLORIDE 108 mmol/L (98-107); CO2 26 mmol/L (21-32); CREATININE 0.8 mg/dL (0.55-1.02); GLUCOSE,RANDOM 83 mg/dL (74-106); POTASSIUM 3.5 mmol/L (3.5-5.1); SGOT/AST 14 U/L (15-37); SGPT/ALT 16 U/L (12-78); SODIUM 141 mmol/L (136-145)
[2017-06-21 09:57] LABS: ALK PHOS 61 U/L (45-117); BILIRUBIN,TOTAL 0.3 mg/dL (0.2-1.0); TOT PROT 6.3 g/dl (6.4-8.2)
[2017-06-21 10:04] LABS: HEMATOCRIT 34.2 % (32.4-45.2); HEMOGLOBIN 11.2 GM/dL (10.7-15.3); MCH 27.3 pg (25.7-33.7); MCHC 32.9 g/dl (32.0-36.0); MEAN PLT VOLUME 9.5 fl (7.5-11.1); PLATELET COUNT 167 K/MM3 (134-434); RBC 4.12 M/mm3 (3.60-5.2)
[2017-06-21] MEDS: NICOTINE 21 MG/24 HOURS TOPICAL PATCH TD SCH (10:38)
[2017-06-21] MEDS: PRENATAL VITAMINS W/ FOLIC ACID TABLET (FP) PO SCH (10:38)
--- NOTE | 2017-06-21 13:09 | PN ---
S CIWA - CIWA Score Nausea/Vomitin Muscle Tremors: 4-Moderate,w/Arms Extend Anxiety: 4-Mod. Anxious/Guarded Agitation: 4-Moderately Restless Paroxysmal Sweats: 3 Orientation: 0-Oriented Tacttile Disturbances: 1-Very Mild Itch/Numbness Auditory Disturbances: 0-None Visual Disturbances: 0-None Headache: 1-Very Mild CIWA-Ar Total Score: 20 B[facility] Progress Note (SOAP) Subjective: Sweating, anxious, nausea Objective: 06/21/17 13:05 Last Vital Signs Temp Pulse Resp BP Pulse Ox 98.8 F 82 18 130/74 06/21/17 09:58 06/21/17 09:58 06/21/17 09:58 06/21/17 09:58 Laboratory Tests 06/20/17 06/21/17 06/21/17 22:00 07:15 07:15 WBC 4.0 RBC 4.12 Hgb 11.2 D Hct 34.2 D MCV 83.0 MCH 27.3 MCHC 32.9 RDW 17.0 H Plt Count 167 MPV 9.5 Sodium 141 Potassium 3.5 Chloride 108 H Carbon Dioxide 26 Anion Gap 7 L BUN 17 Creatinine 0.8 Creat Clearance w eGFR > 60 Random Glucose 83 Calcium 8.3 L Total Bilirubin 0.3 D AST 14 L ALT 16 Alkaline Phosphatase 61 Total Protein 6.3 L Albumin 3.2 L Urine Color Yellow Urine Appearance Slcloudy Urine pH 6.0 Ur Specific [place] 1.025 Urine Protein Negative Urine Glucose (UA) Negative Urine Ketones Trace H Urine Blood 2+ H Urine Nitrite Negative Urine Bilirubin Negative Urine Urobilinogen 2.0 H Ur Leukocyte Esterase Trace Urine WBC (Auto) 5 Urine RBC (Auto) 2 Ur Epithelial Cells Few Urine Bacteria Rare Hyaline Casts 1 Urine Mucus Rare RPR Titer 06/21/17 07:15 WBC RBC Hgb Hct MCV MCH MCHC RDW Plt Count MPV Sodium Potassium Chloride Carbon Dioxide Anion Gap BUN Creatinine Creat Clearance w eGFR Random Glucose Calcium Total Bilirubin AST ALT Alkaline Phosphatase Total Protein Albumin Urine Color Urine Appearance Urine pH Ur Specific [place] Urine Protein Urine Glucose (UA) Urine Ketones Urine Blood Urine Nitrite Urine Bilirubin Urine Urobilinogen Ur Leukocyte Esterase Urine WBC (Auto) Urine RBC (Auto) Ur Epithelial Cells Urine Bacteria Hyaline Casts Urine Mucus RPR Titer Nonreactive Labs reviewed: UA shows microscopic hematuria (possibly r/t menses, consider repeating UA if no menses) Assessment: 06/21/17 13:07 Withdrawal symptoms Plan: Continue detox Encouraged to drink lots of water for hydration
--- NOTE | 2017-06-21 14:35 | EKG ---
Test Reason : Blood Pressure : / mmHG Vent. Rate : 077 BPM Atrial Rate : 077 BPM P-R Int : 154 ms QRS Dur : 072 ms QT Int : 430 ms P-R-T Axes : 072 070 061 degrees QTc Int : 486 ms NORMAL SINUS RHYTHM WITH SINUS ARRHYTHMIA PROLONGED QT ABNORMAL ECG WHEN COMPARED WITH ECG OF 05-AUG-2016 20:04, QT HAS LENGTHENED Confirmed by MD Kelvin, Conor ([id number]) on 06/21/2017 2:35:21 PM Referred By: Jewel Greenberg Confirmed By:Conor Warren MD
--- NOTE | 2017-06-21 19:27 | PN ---
[facility] Progress Note Note: Psychiatry Attending's on-call note : Called by nurse to enter orders for medications. Requested : seroquel,buspar,gabapentin and trazodone. Chart reviewed.No information about date of last medication intake. Review of pharmacy claims : not informative. Abnormal EKG : prolonged QT. Will not resume above medications at this time. Regimen will be determined after psychiatric evaluation in am. Discussed with nurse on duty.
[2017-06-21] MEDS: THIAMINE HCL 100 MG TABLET (FP) PO SCH (22:07)
[2017-06-22] MEDS: chlordiazePOXIDE HCL 25 MG CAPSULE PO SCH ×2 (05:12→10:05)
--- NOTE | 2017-06-22 09:18 | PN ---
S CIWA - CIWA Score Nausea/Vomitin Muscle Tremors: 3 Anxiety: 3 Agitation: 2 Paroxysmal Sweats: 1-Minimal Palms Moist Orientation: 0-Oriented Tacttile Disturbances: 1-Very Mild Itch/Numbness Auditory Disturbances: 1-Very Mild Visual Disturbances: 0-None Headache: 2-Mild CIWA-Ar Total Score: 16 S Progress Note (SOAP) Subjective: ALERT,IRRITABLE,ANXIOUS,INTERRUPTED SLEEP,TREMOR,FEEL DEPRESS Objective: 06/22/17 09:16 Vital Signs Temperature 98.6 F 06/22/17 06:25 Pulse Rate 72 06/22/17 06:25 Respiratory Rate 16 06/22/17 06:30 Blood Pressure 110/62 06/22/17 06:25 O2 Sat by Pulse Oximetry (%) Laboratory Last Values WBC 4.0 K/mm3 (4.0-10.0) 06/21/17 07:15 RBC 4.12 M/mm3 (3.60-5.2) 06/21/17 07:15 Hgb 11.2 GM/dL (10.7-15.3) D 06/21/17 07:15 Hct 34.2 % (32.4-45.2) D 06/21/17 07:15 MCV 83.0 fl (80-96) 06/21/17 07:15 MCH 27.3 pg (25.7-33.7) 06/21/17 07:15 MCHC 32.9 g/dl (32.0-36.0) 06/21/17 07:15 RDW 17.0 % (11.6-15.6) H 06/21/17 07:15 Plt Count 167 K/MM3 (134-434) 06/21/17 07:15 MPV 9.5 fl (7.5-11.1) 06/21/17 07:15 Sodium 141 mmol/L (136-145) 06/21/17 07:15 Potassium 3.5 mmol/L (3.5-5.1) 06/21/17 07:15 Chloride 108 mmol/L (98-107) H 06/21/17 07:15 Carbon Dioxide 26 mmol/L (21-32) 06/21/17 07:15 Anion Gap 7 (8-16) L 06/21/17 07:15 BUN 17 mg/dL (7-18) 06/21/17 07:15 Creatinine 0.8 mg/dL (0.55-1.02) 06/21/17 07:15 Creat Clearance w eGFR > 60 (>60) 06/21/17 07:15 Random Glucose 83 mg/dL (74-106) 06/21/17 07:15 Calcium 8.3 mg/dL (8.5-10.1) L 06/21/17 07:15 Total Bilirubin 0.3 mg/dL (0.2-1.0) D 06/21/17 07:15 AST 14 U/L (15-37) L 06/21/17 07:15 ALT 16 U/L (12-78) 06/21/17 07:15 Alkaline Phosphatase 61 U/L (45-117) 06/21/17 07:15 Total Protein 6.3 g/dl (6.4-8.2) L 06/21/17 07:15 Albumin 3.2 g/dl (3.4-5.0) L 06/21/17 07:15 Urine Color Yellow 06/20/17 22:00 Urine Appearance Slcloudy 06/20/17 22:00 Urine pH 6.0 (5.0-8.0) 06/20/17 22:00 Ur Specific [place] 1.025 (1.001-1.035) 06/20/17 22:00 Urine Protein Negative (NEGATIVE) 06/20/17 22:00 Urine Glucose (UA) Negative (NEGATIVE) 06/20/17 22:00 Urine Ketones Trace (NEGATIVE) H 06/20/17 22:00 Urine Blood 2+ (NEGATIVE) H 06/20/17 22:00 Urine Nitrite Negative (NEGATIVE) 06/20/17 22:00 Urine Bilirubin Negative (<2.0 mg/dL) 06/20/17 22:00 Urine Urobilinogen 2.0 mg/dL (0.2-1.0) H 06/20/17 22:00 Ur Leukocyte Esterase Trace (NEGATIVE) 06/20/17 22:00 Urine WBC (Auto) 5 /hpf (3-5) 06/20/17 22:00 Urine RBC (Auto) 2 /hpf (0-3) 06/20/17 22:00 Ur Epithelial Cells Few /HPF (FEW) 06/20/17 22:00 Urine Bacteria Rare /hpf (NONE SEEN) 06/20/17 22:00 Hyaline Casts 1 /lpf 06/20/17 22:00 Urine Mucus Rare 06/20/17 22:00 RPR Titer Nonreactive (NONREACTIVE) 06/21/17 07:15 Assessment: 06/22/17 09:17 WITHDRAWAL SYMPTOM Plan: CONTINUE DETOX,PSYCHIATRIC EVALUATION
[2017-06-22] MEDS: PRENATAL VITAMINS W/ FOLIC ACID TABLET (FP) PO SCH (10:04)
[2017-06-22] MEDS: NICOTINE POLACRILEX 2 MG GUM BC PRN ×4 (10:05→22:06)
[2017-06-22] MEDS: GABAPENTIN 300 MG CAPSULE (FP) PO SCH (10:05)
[2017-06-22] MEDS: NICOTINE 21 MG/24 HOURS TOPICAL PATCH TD SCH (10:06)
--- NOTE | 2017-06-22 15:31 | CONSULT ---
[facility] Psychiatric Consult - Data Date of interview: 06/22/17 Admission source: [facility] Identifying data: Readmission to [facility] for this 46 y/o AA female seeking detox treatment on for alcohol and cocaine (crack) dependence.Patient is single,a mother of six,domiciled,unemployed and supported on SSI benefits. Substance Abuse History: Confirmed by patient in this session.Details in current [facility] report : Smoking history: Current every day smoker. Have you smoked in the past 12 months: Yes. Aproximately how many cigarettes per day: 20. Cigars Per Day: 0. Hx Chewing Tobacco Use: No. Initiated information on smoking cessation: Yes. 'Breaking Loose' booklet given: 06/20/17. - Substance & Tx. History. Hx Alcohol Use: Yes (vodka). Hx Substance Use: Yes. Substance Use Type: Alcohol, Cocaine. Hx Substance Use Treatment: Yes. - Substances Abused. Alcohol. Route: Oral. Frequency: Daily. Amount used: 1 gallon. Age of first use: 13. Date of Last Use: 06/20/17. Cocaine. Route: Smoking. Frequency: Daily. Amount used: 1 gram. Age of first use: 13. Date of Last Use: 06/20/17 Medical History: GERD,anemia,peripheral neuropathy,history of positive PPD and past treatment for gonorrhea. Psychiatric History: Extensive history of mental illness.Early onset (age 11-13) .First psychiatric hospitalization at [facility] at age 13.Diagnosed with Bipolar Disorder.History of " more than 10 " psychiatric hospitalizations.Ms Reyes sees a psychiatrist,Dr Gutierrez, at [facility] in [facility] ([phone] / [phone]) for medication management.Maintained on a regimen of : buspar 15 mg po bid + seroquel 300 mg po bid + trazodone 50 mg po hs (verified by written documentation from provider + bottles of medications). Patient endorses a distant history of suicide attempt (age 22) via overdose with pills. Physical/Sexual Abuse/Trauma History: Patient denies. Additional Comment: Urine Drug Screen Results: QUE-Cocaine, BZO- Benzodiazepines.Noted. Mental Status Exam - Mental Status Exam Alert and Oriented to: Time, Place, Person Cognitive Function: Good Patient Appearance: Well Groomed Mood: Anxious, Apprehensive Affect: Appropriate, Normal Range Patient Behavior: Fatigued, Appropriate, Cooperative Speech Pattern: Clear, Appropriate Voice Loudness: Normal Thought Process: Intact, Goal Oriented Thought Disorder: Not Present Hallucinations: Denies Suicidal Ideation: Denies Homicidal Ideation: Denies Insight/Judgement: Fair (eager to get back on her psychotropic medications) Sleep: Poorly, Difficulty falling asleep Appetite: Good Muscle strength/Tone: Normal Gait/Station: Normal Psychiatric Findings - Problem List ([place] 1, 2,3) (1) Alcohol dependence with uncomplicated withdrawal Current Visit: Yes Status: Acute (2) Cocaine dependence, uncomplicated Current Visit: Yes Status: Acute (3) Nicotine dependence Current Visit: Yes Status: Acute Qualifiers: Nicotine product type: cigarettes Substance use status: in withdrawal Qualified Code(s): F17.213 - Nicotine dependence, cigarettes, with withdrawal (4) Bipolar disorder Current Visit: Yes Status: Chronic (5) Insomnia Current Visit: Yes Status: Acute - Initial Treatment Plan Initial Treatment Plan: Psychoeducation.Sleep hygiene.Detoxification in progress.Abnormal EKG noted.Discussed with the medical attending, Dr Weaver.Issue is also revisited with the patient (QT = 480 / patient asymptomatic).Will resume seroquel at the reduced dose of 100 mg po day / 200 mg po hs + trazodone 50 mg po hs + buspar 15 mg po bid.Side effects/benefits discussed with the patient.Ms Reyes consents (verbally) to this plan of care.Observation.Medications were verified by this clinical writer (bottles of medications + referral letter from [facility] : seen).NO scripts required at discharge (patient just got new refills).
[2017-06-22] MEDS: chlordiazePOXIDE 5 MG CAPSULE PO SCH ×2 (18:06→22:06)
[2017-06-22] MEDS: traZODone HCL 50 MG TABLET (FP) PO SCH (22:04)
[2017-06-22] MEDS: QUEtiapine FUMARATE 200 MG TABLET PO SCH (22:04)
[2017-06-22] MEDS: THIAMINE HCL 100 MG TABLET (FP) PO SCH (22:04)
[2017-06-23] MEDS: chlordiazePOXIDE 5 MG CAPSULE PO SCH ×2 (05:50→11:00)
--- NOTE | 2017-06-23 09:11 | PN ---
[facility] Progress Note (SOAP) Subjective: ALERT,NO COMPLAINT Objective: 06/23/17 09:10 Vital Signs Temperature 97.4 F L 06/23/17 08:53 Pulse Rate 84 06/23/17 08:53 Respiratory Rate 18 06/23/17 08:53 Blood Pressure 105/53 06/23/17 08:53 O2 Sat by Pulse Oximetry (%) Assessment: 06/23/17 09:10 PATIENT IS STABLE FOR DISCHARGE TODAY,STATED SHE HAS TO LEAVE TO GO TO [facility] Plan: DISCHARGE TODAY
--- NOTE | 2017-06-23 09:15 | DS ---
[facility] Detox Discharge Summary Admission Date: 06/20/17 Discharge Date: 06/23/17 - History Present History: Alcohol Dependence, Cocaine Dependence Additional Comments: FOLLOW UP WITH AFTER CARE PROGRAM ARRANGEMENT Pertinent Past History: GERD NICOTINE DEPENDENCE HISTORY OF ANEMIA DEPRESSION - Physical Exam Results Vital Signs: Vital Signs Temperature 97.4 F L 06/23/17 08:53 Pulse Rate 84 06/23/17 08:53 Respiratory Rate 18 06/23/17 08:53 Blood Pressure 105/53 06/23/17 08:53 O2 Sat by Pulse Oximetry (%) Pertinent Admission Physical Exam Findings: WITHDRAWAL SIGNS AND SYMPTOM Vital Signs Temperature 97.4 F L 06/23/17 08:53 Pulse Rate 84 06/23/17 08:53 Respiratory Rate 18 06/23/17 08:53 Blood Pressure 105/53 06/23/17 08:53 O2 Sat by Pulse Oximetry (%) Laboratory Last Values WBC 4.0 K/mm3 (4.0-10.0) 06/21/17 07:15 RBC 4.12 M/mm3 (3.60-5.2) 06/21/17 07:15 Hgb 11.2 GM/dL (10.7-15.3) D 06/21/17 07:15 Hct 34.2 % (32.4-45.2) D 06/21/17 07:15 MCV 83.0 fl (80-96) 06/21/17 07:15 MCH 27.3 pg (25.7-33.7) 06/21/17 07:15 MCHC 32.9 g/dl (32.0-36.0) 06/21/17 07:15 RDW 17.0 % (11.6-15.6) H 06/21/17 07:15 Plt Count 167 K/MM3 (134-434) 06/21/17 07:15 MPV 9.5 fl (7.5-11.1) 06/21/17 07:15 Sodium 141 mmol/L (136-145) 06/21/17 07:15 Potassium 3.5 mmol/L (3.5-5.1) 06/21/17 07:15 Chloride 108 mmol/L (98-107) H 06/21/17 07:15 Carbon Dioxide 26 mmol/L (21-32) 06/21/17 07:15 Anion Gap 7 (8-16) L 06/21/17 07:15 BUN 17 mg/dL (7-18) 06/21/17 07:15 Creatinine 0.8 mg/dL (0.55-1.02) 06/21/17 07:15 Creat Clearance w eGFR > 60 (>60) 06/21/17 07:15 Random Glucose 83 mg/dL (74-106) 06/21/17 07:15 Calcium 8.3 mg/dL (8.5-10.1) L 06/21/17 07:15 Total Bilirubin 0.3 mg/dL (0.2-1.0) D 06/21/17 07:15 AST 14 U/L (15-37) L 06/21/17 07:15 ALT 16 U/L (12-78) 06/21/17 07:15 Alkaline Phosphatase 61 U/L (45-117) 06/21/17 07:15 Total Protein 6.3 g/dl (6.4-8.2) L 06/21/17 07:15 Albumin 3.2 g/dl (3.4-5.0) L 06/21/17 07:15 Urine Color Yellow 06/20/17 22:00 Urine Appearance Slcloudy 06/20/17 22:00 Urine pH 6.0 (5.0-8.0) 06/20/17 22:00 Ur Specific [place] 1.025 (1.001-1.035) 06/20/17 22:00 Urine Protein Negative (NEGATIVE) 06/20/17 22:00 Urine Glucose (UA) Negative (NEGATIVE) 06/20/17 22:00 Urine Ketones Trace (NEGATIVE) H 06/20/17 22:00 Urine Blood 2+ (NEGATIVE) H 06/20/17 22:00 Urine Nitrite Negative (NEGATIVE) 06/20/17 22:00 Urine Bilirubin Negative (<2.0 mg/dL) 06/20/17 22:00 Urine Urobilinogen 2.0 mg/dL (0.2-1.0) H 06/20/17 22:00 Ur Leukocyte Esterase Trace (NEGATIVE) 06/20/17 22:00 Urine WBC (Auto) 5 /hpf (3-5) 06/20/17 22:00 Urine RBC (Auto) 2 /hpf (0-3) 06/20/17 22:00 Ur Epithelial Cells Few /HPF (FEW) 06/20/17 22:00 Urine Bacteria Rare /hpf (NONE SEEN) 06/20/17 22:00 Hyaline Casts 1 /lpf 06/20/17 22:00 Urine Mucus Rare 06/20/17 22:00 RPR Titer Nonreactive (NONREACTIVE) 06/21/17 07:15 - Treatment Hospital Course: Detox Protocol Followed, Detoxed Safely, Responded well, Discharged Condition Good Patient has Accepted a Rehab Referral to: DECLINED - Medication Discharge Medications: Ambulatory Orders Buspirone HCl [Buspar -] 10 mg PO DAILY 08/05/16 Quetiapine Fumarate [Seroquel -] 100 mg PO DAILY 08/05/16 Quetiapine Fumarate [Seroquel -] 200 mg PO HS 08/05/16 Buspirone HCl [Buspar -] 10 mg PO BID #60 tablet 08/06/16 Quetiapine Fumarate [Seroquel -] 200 mg PO HS #30 tab 08/06/16 Quetiapine Fumarate [Seroquel] 100 tab PO DAILY #30 tablet 08/06/16 Amoxicillin - [Amoxicillin 500mg Capsule -] 500 mg PO TID #20 cap 08/11/16 Buspirone HCl [Buspar -] 15 mg PO BID #60 tablet 08/29/16 Ferrous Sulfate [Feosol] 325 mg PO TIDCM #90 tab 08/29/16 Fluticasone Prop 0.05% Nasal [Flonase -] 2 spray NS DAILY #1 spray 08/29/16 Nicotine Polacrilex [Nicorelief -] 2 mg BUC Q2H PRN #100 gum 08/29/16 Vitamins (Sjr) - 1 tab PO DAILY #90 tablet 08/29/16 Quetiapine Fumarate [Seroquel -] 100 mg PO DAILY #30 tab 08/29/16 Quetiapine Fumarate [Seroquel -] 250 mg PO HS #120 tablet 08/29/16 Ranitidine [Zantac -] 150 mg PO BID #60 tablet 08/29/16 Valacyclovir HCl [Valtrex -] 500 mg PO BID #14 tablet 08/29/16 Gabapentin [Neurontin -] 300 mg PO DAILY 06/20/17 Quetiapine Fumarate [Seroquel -] 300 mg PO BID 06/20/17 Trazodone HCl 50 mg PO HS 06/20/17 - Diagnosis (1) Alcohol dependence with uncomplicated withdrawal Current Visit: Yes Status: Acute (2) Cocaine dependence, uncomplicated Current Visit: Yes Status: Acute (3) GERD (gastroesophageal reflux disease) Current Visit: Yes Status: Chronic Qualifiers: Esophagitis presence: without esophagitis Qualified Code(s): K21.9 - Gastro -esophageal reflux disease without esophagitis (4) Nicotine dependence Current Visit: Yes Status: Acute Qualifiers: Nicotine product type: cigarettes Substance use status: in withdrawal Qualified Code(s): F17.213 - Nicotine dependence, cigarettes, with withdrawal - AMA Did Patient Leave Against Medical Advice: No
[2017-06-23] MEDS: QUEtiapine FUMARATE 100 MG TABLET (FP) PO SCH (09:54)
[2017-06-23] MEDS: PRENATAL VITAMINS W/ FOLIC ACID TABLET (FP) PO SCH (09:54)
[2017-06-23] MEDS: GABAPENTIN 300 MG CAPSULE (FP) PO SCH (09:54)
[2017-06-23] MEDS: NICOTINE 21 MG/24 HOURS TOPICAL PATCH TD SCH (09:55)
[2017-06-23] MEDS: chlordiazePOXIDE HCL 10 MG CAPSULE PO SCH ×2 (18:04→22:44)
[2017-06-23] MEDS: NICOTINE POLACRILEX 2 MG GUM BC PRN (18:41)
[2017-06-23] MEDS: QUEtiapine FUMARATE 200 MG TABLET PO SCH (22:10)
[2017-06-23] MEDS: THIAMINE HCL 100 MG TABLET (FP) PO SCH (22:10)
[2017-06-23] MEDS: traZODone HCL 50 MG TABLET (FP) PO SCH (22:10)
[2017-06-24] MEDS: chlordiazePOXIDE HCL 10 MG CAPSULE PO SCH (05:16)
--- NOTE | 2017-06-24 07:53 | PN ---
S Progress Note (SOAP) Subjective: ALERT,NO COMPLAINT Objective: 06/24/17 07:52 Vital Signs Temperature 97.9 F 06/24/17 07:16 Pulse Rate 74 06/24/17 07:16 Respiratory Rate 18 06/24/17 07:16 Blood Pressure 124/77 06/24/17 07:16 O2 Sat by Pulse Oximetry (%) Assessment: 06/24/17 07:52 DETOX COMPLETED,NO WITHDRAWAL SYMPTOM Plan: DISCHARGE TODAY,FOLLOW UP WITH AFTER CARE PROGRAM ARRANGEMENT
--- NOTE | 2017-06-24 08:02 | DS ---
[facility] Detox Discharge Summary Admission Date: 06/20/17 Discharge Date: 06/24/17 - History Present History: Alcohol Dependence, Cocaine Dependence Additional Comments: FOLLOW UP WITH AFTER CARE PROGRAM ARRANGEMENT Pertinent Past History: GERD NICOTINE DEPENDENCE DEPRESSION HISTORY OF ANEMIA - Physical Exam Results Vital Signs: Vital Signs Temperature 97.9 F 06/24/17 07:16 Pulse Rate 74 06/24/17 07:16 Respiratory Rate 18 06/24/17 07:16 Blood Pressure 124/77 06/24/17 07:16 O2 Sat by Pulse Oximetry (%) Pertinent Admission Physical Exam Findings: WITHDRAWAL SIGNS AND SYMPTOM Vital Signs Temperature 97.9 F 06/24/17 07:16 Pulse Rate 74 06/24/17 07:16 Respiratory Rate 18 06/24/17 07:16 Blood Pressure 124/77 06/24/17 07:16 O2 Sat by Pulse Oximetry (%) Laboratory Last Values WBC 4.0 K/mm3 (4.0-10.0) 06/21/17 07:15 RBC 4.12 M/mm3 (3.60-5.2) 06/21/17 07:15 Hgb 11.2 GM/dL (10.7-15.3) D 06/21/17 07:15 Hct 34.2 % (32.4-45.2) D 06/21/17 07:15 MCV 83.0 fl (80-96) 06/21/17 07:15 MCH 27.3 pg (25.7-33.7) 06/21/17 07:15 MCHC 32.9 g/dl (32.0-36.0) 06/21/17 07:15 RDW 17.0 % (11.6-15.6) H 06/21/17 07:15 Plt Count 167 K/MM3 (134-434) 06/21/17 07:15 MPV 9.5 fl (7.5-11.1) 06/21/17 07:15 Sodium 141 mmol/L (136-145) 06/21/17 07:15 Potassium 3.5 mmol/L (3.5-5.1) 06/21/17 07:15 Chloride 108 mmol/L (98-107) H 06/21/17 07:15 Carbon Dioxide 26 mmol/L (21-32) 06/21/17 07:15 Anion Gap 7 (8-16) L 06/21/17 07:15 BUN 17 mg/dL (7-18) 06/21/17 07:15 Creatinine 0.8 mg/dL (0.55-1.02) 06/21/17 07:15 Creat Clearance w eGFR > 60 (>60) 06/21/17 07:15 Random Glucose 83 mg/dL (74-106) 06/21/17 07:15 Calcium 8.3 mg/dL (8.5-10.1) L 06/21/17 07:15 Total Bilirubin 0.3 mg/dL (0.2-1.0) D 06/21/17 07:15 AST 14 U/L (15-37) L 06/21/17 07:15 ALT 16 U/L (12-78) 06/21/17 07:15 Alkaline Phosphatase 61 U/L (45-117) 06/21/17 07:15 Total Protein 6.3 g/dl (6.4-8.2) L 06/21/17 07:15 Albumin 3.2 g/dl (3.4-5.0) L 06/21/17 07:15 Urine Color Yellow 06/20/17 22:00 Urine Appearance Slcloudy 06/20/17 22:00 Urine pH 6.0 (5.0-8.0) 06/20/17 22:00 Ur Specific [place] 1.025 (1.001-1.035) 06/20/17 22:00 Urine Protein Negative (NEGATIVE) 06/20/17 22:00 Urine Glucose (UA) Negative (NEGATIVE) 06/20/17 22:00 Urine Ketones Trace (NEGATIVE) H 06/20/17 22:00 Urine Blood 2+ (NEGATIVE) H 06/20/17 22:00 Urine Nitrite Negative (NEGATIVE) 06/20/17 22:00 Urine Bilirubin Negative (<2.0 mg/dL) 06/20/17 22:00 Urine Urobilinogen 2.0 mg/dL (0.2-1.0) H 06/20/17 22:00 Ur Leukocyte Esterase Trace (NEGATIVE) 06/20/17 22:00 Urine WBC (Auto) 5 /hpf (3-5) 06/20/17 22:00 Urine RBC (Auto) 2 /hpf (0-3) 06/20/17 22:00 Ur Epithelial Cells Few /HPF (FEW) 06/20/17 22:00 Urine Bacteria Rare /hpf (NONE SEEN) 06/20/17 22:00 Hyaline Casts 1 /lpf 06/20/17 22:00 Urine Mucus Rare 06/20/17 22:00 RPR Titer Nonreactive (NONREACTIVE) 06/21/17 07:15 - Treatment Hospital Course: Detox Protocol Followed, Detoxed Safely, Responded well, Discharged Condition Good Patient has Accepted a Rehab Referral to: DECLINE - Medication Discharge Medications: Ambulatory Orders Buspirone HCl [Buspar -] 10 mg PO DAILY 08/05/16 Quetiapine Fumarate [Seroquel -] 100 mg PO DAILY 08/05/16 Quetiapine Fumarate [Seroquel -] 200 mg PO HS 08/05/16 Buspirone HCl [Buspar -] 10 mg PO BID #60 tablet 08/06/16 Quetiapine Fumarate [Seroquel -] 200 mg PO HS #30 tab 08/06/16 Quetiapine Fumarate [Seroquel] 100 tab PO DAILY #30 tablet 08/06/16 Amoxicillin - [Amoxicillin 500mg Capsule -] 500 mg PO TID #20 cap 08/11/16 Buspirone HCl [Buspar -] 15 mg PO BID #60 tablet 08/29/16 Ferrous Sulfate [Feosol] 325 mg PO TIDCM #90 tab 08/29/16 Fluticasone Prop 0.05% Nasal [Flonase -] 2 spray NS DAILY #1 spray 08/29/16 Nicotine Polacrilex [Nicorelief -] 2 mg BUC Q2H PRN #100 gum 08/29/16 Vitamins (Sjr) - 1 tab PO DAILY #90 tablet 08/29/16 Quetiapine Fumarate [Seroquel -] 100 mg PO DAILY #30 tab 08/29/16 Quetiapine Fumarate [Seroquel -] 250 mg PO HS #120 tablet 08/29/16 Ranitidine [Zantac -] 150 mg PO BID #60 tablet 08/29/16 Valacyclovir HCl [Valtrex -] 500 mg PO BID #14 tablet 08/29/16 Gabapentin [Neurontin -] 300 mg PO DAILY 06/20/17 Quetiapine Fumarate [Seroquel -] 300 mg PO BID 06/20/17 Trazodone HCl 50 mg PO HS 06/20/17 - Diagnosis (1) Alcohol dependence with uncomplicated withdrawal Current Visit: Yes Status: Acute (2) Cocaine dependence, uncomplicated Current Visit: Yes Status: Acute (3) GERD (gastroesophageal reflux disease) Current Visit: Yes Status: Chronic Qualifiers: Esophagitis presence: without esophagitis Qualified Code(s): K21.9 - Gastro -esophageal reflux disease without esophagitis (4) Nicotine dependence Current Visit: Yes Status: Acute Qualifiers: Nicotine product type: cigarettes Substance use status: in withdrawal Qualified Code(s): F17.213 - Nicotine dependence, cigarettes, with withdrawal (5) Depression Current Visit: Yes Status: Chronic - AMA Did Patient Leave Against Medical Advice: No
[2017-06-24 09:19] VITALS: BP 125/71; PULSE 98; TEMP 97.5
[2017-06-24] MEDS: GABAPENTIN 300 MG CAPSULE (FP) PO SCH (09:41)
[2017-06-24] MEDS: PRENATAL VITAMINS W/ FOLIC ACID TABLET (FP) PO SCH (09:41)
[2017-06-24] MEDS: QUEtiapine FUMARATE 100 MG TABLET (FP) PO SCH (09:41)
[2017-06-24] MEDS: NICOTINE 21 MG/24 HOURS TOPICAL PATCH TD SCH (09:43)
[2017-06-24] MEDS: NICOTINE POLACRILEX 2 MG GUM BC PRN (09:44)
== END 2017-06-24 09:53 | disposition home or self-care (01) | DRG 774 ==
LOC: YASAS 15:13 → Y6N 17:27
PROVIDERS: ADMIT Internal Medicine; ATTEND Internal Medicine
PROC: HZ2ZZZZ Detoxification Services for Substance Abuse Treatment (ICD-10-PCS; principal; 2017-06-20)
DX: F10.230 Alcohol dependence with withdrawal, uncomplicated (principal); F14.20 Cocaine dependence, uncomplicated; F17.213 Nicotine dependence, cigarettes, with withdrawal; F32.9 Major depressive disorder, single episode, unspecified; F31.89 Other bipolar disorder; K21.9 Gastro-esophageal reflux disease without esophagitis; G47.00 Insomnia, unspecified; R76.11 Nonspecific reaction to tuberculin skin test without active tuberculosis; D64.9 Anemia, unspecified; Z87.42 Personal history of other diseases of the female genital tract
CPT/HCPCS: 36415; 71046-TC-FY; 80053; 81003; 81015; 85027; 86593; 93005; 93010